=== PATIENT | male | born 1960 | race African-American/Black ===

== ENCOUNTER → 2018-01-03 07:45 | Outpatient (CLI) | payer OTHER, SELFPAY ==
--- NOTE | 2018-01-03 | DI.MRI.S_ITS ---
PROCEDURE: MR KNEE RT WO CON INDICATIONS: RIGHT KNEE PRIMARY OSTEOARTHRITIS TECHNIQUE: Noncontrast sagittal PD fast spin echo and T2 fast spin echo with fat saturation, sagittal 3-D FLASH with fat saturation; coronal T1 spin echo and PD fast spin echo with fat saturation, and axial PD fast spin echo with fat saturation through the knee. COMPARISON: [facility] [place], CR, XR KNEE ARTHRITIC SERIES BI, 12/20/2017, 13:09. [facility] [place], CR, XR BONE LENGTH(SCANOGRAM), 03/10/2017, 10:11. [facility] [place], CR, XR BONE LENGTH SCANOGRAM, 01/03/2018, 8:45. [facility], MR, KNEE WITHOUT CONTRAST, 03/10/2017, 9:27. [facility], MR, KNEE WITHOUT CONTRAST, 02/17/2016, 12:59. FINDINGS: Image quality: Excellent. Menisci: The medial and lateral menisci demonstrate severely degenerated morphology and internal signal, with virtual absence of the lateral meniscus and extensive degenerative change at the medial meniscus comprised of thinning and a horizontally oriented posterior horn medial meniscal tear, nondisplaced. The meniscal root ligaments appear intact. Cruciate ligaments: The anterior and posterior cruciate ligaments appear intact. Medial structures: The medial collateral ligament appears intact. The posterior oblique ligament, semimembranosus tendon insertions, oblique popliteal ligament, and meniscocapsular junction appear intact. Visualized portions of the pes anserinus tendons appear normal. No abnormal bursal fluid. Lateral structures: The lateral collateral ligament, long and short heads of the biceps femoris tendon appear intact. The popliteus tendon appears normal; the popliteofibular ligament appears intact. The posterosuperior and anteroinferior popliteomeniscal fascicles appear intact. The arcuate and fabellofibular ligaments appear intact, on either side of the lateral inferior geniculate artery. Iliotibial band appears normal. Anterior structures: The quadriceps and patellar tendons appear intact. Patellar alignment is normal. No femoral trochlear dysplasia or ventral trochlear prominence. No edema in the infrapatellar fat pad. Bones and cartilage: No bone marrow contusions or fractures. The cartilage of the medial and lateral femorotibial compartments, as well as the patellofemoral compartment, appears prominently reduced or absent in thickness. Joint space: There is a moderate excess of knee joint fluid and there are intra-articular loose bodies in the anterior joint space below the inferior margin of the patellar border, dorsal to the patellar ligament, measuring up to a combined transverse dimension of 2.6 cm and a maximal AP dimension of 8 mm with craniocaudad dimension of 2.0 cm. There is a moderately large Goodwin's cyst containing a large extra-articular partially calcified osteochondral loose body, measuring up to 2.5 cm in maximal dimension. Normal appearing synovial plicae are incidentally noted. IMPRESSION: Severe degenerative changes involving all compartments of the knee with a moderate joint effusion and intra-articular loose bodies. There is a posterior Goodwin's cyst at the medial knee, containing an osteochondral loose body measuring up to 2.5 cm in dimension. The menisci show extensive degeneration, with virtual absence of the lateral meniscus and a horizontally oriented but nondisplaced posterior horn medial meniscal tear. Articular cartilage thinning is pronounced in this patient and most prominent at the lateral compartment. Dictated by: Naseem Campbell M.D. on 01/03/2018 at 10:33 Approved by: Naseem Campbell M.D. on 01/03/2018 at 10:39
== END ==
PROVIDERS: Visit Provider Orthopaedic Surgery
DX: M17.11 Unilateral primary osteoarthritis, right knee (principal); M71.21 Synovial cyst of popliteal space [Baker], right knee; M23.41 Loose body in knee, right knee; S83.241A Other tear of medial meniscus, current injury, right knee, initial encounter
CPT/HCPCS: 73721

== ENCOUNTER → 2018-02-06 13:13 | Outpatient (CLI) | payer OTHER, SELFPAY ==
[2018-02-06 13:23] LABS: Bacteria Urine None Seen; RBC Urine None Seen (0-5/HPF); WBC Urine None Seen (0-5/HPF)
[2018-02-06 13:36] LABS: Add Manual Diff / Slide Review NO; Basophils Percent Auto 0.8 % (0-2); Eosinophils Percent Auto 2.7 % (2-4); Hematocrit 41.8 % (41-53); Hemoglobin 14.1 g/dL (13.5-17.5); Lymphocytes Percent Auto 29.1 % (25-40); Mean Corpuscular HGB Conc 33.8 % (30-36); Mean Corpuscular Hemoglobin 29.9 PG (26-34); Mean Corpuscular Volume 88.4 fL (80-100); Neutrophils Absolute Auto 3200 /uL (3000-5900); Neutrophils Percent Auto 61.4 % (50-75); Platelet Count 221 X10^3/uL (150-400); Red Blood Cell Count 4.72 X10^6/uL (4.5-5.9); Red Cell Distribution Width 14.7 % (11.6-14.8); White Blood Cell Count 5.2 X10^3/uL (4.5-11.0)
[2018-02-06 13:58] LABS: Blood Urea Nitrogen 12 mg/dL (9-20); Calcium 9.4 mg/dL (8.4-10.2); Carbon Dioxide 28 mmol/L (22-32); Chloride 103 mmol/L (98-107); Estimated Glomerular Filt Rate > 60.0 mL/min (>60); Glucose 92 mg/dL (70-100); HEMOLYSIS 22 (0-50); Potassium 4.3 mmol/L (3.4-5.1); Sodium 141 mmol/L (137-145)
[2018-02-06 14:48] LABS: Appearance Urine UA CLEAR; Bilirubin Urine UA NEGATIVE (NEGATIVE); Color Urine UA YELLOW; Glucose Urine UA NEGATIVE (Normal); Ketones Urine UA NEGATIVE (NEGATIVE); Leukocyte Esterase Urine UA NEGATIVE (NEGATIVE); Nitrite Urine UA Negative (Negative); Occult Blood Urine UA NEGATIVE (Negative); Protein Urine UA NEGATIVE (Negative); Urobilinogen Urine UA 0.2 E.U./dL (0.2); pH Urine UA 5.5 (4.5-8.0)
[2018-02-06 15:01] LABS: Culture Indicated Urine Cult Not Indicated
[2018-02-06 15:57] LABS: Hemoglobin A1C% w Est Avg Glu 5.7 % (4.0-6.0)
== END ==
PROVIDERS: PCP Family Medicine; Visit Provider Orthopaedic Surgery
DX: Z01.812 Encounter for preprocedural laboratory examination (principal); N39.0 Urinary tract infection, site not specified; R73.09 Other abnormal glucose
CPT/HCPCS: 36415; 80048; 81001; 83036; 85025; 93005; 93010

== ENCOUNTER 2018-03-01 06:45 | Inpatient (IN) | payer OTHER, SELFPAY ==
[2018-01-30 08:51] VITALS: BMI 33.0
[2018-03-01] VITALS (14 sets, daily range): BP systolic 100–157; BP diastolic 60–90; PULSE 59–82; RESP 11–18; TEMP 36–36.9; O2SAT 94–98; BMI 32.8
--- NOTE | 2018-03-01 | DI.RAD.S_ITS ---
PROCEDURE: XR KNEE RT 1TO2V INDICATIONS: POST OP RIGHT TOTAL KNEE TECHNIQUE: 2 view(s) of the knee acquired. COMPARISON: [facility], MR, MR KNEE RT WO CON, 01/03/2018, 7:53. [facility] [place], CR, XR KNEE ARTHRITIC SERIES BI, 12/20/2017, 13:09. FINDINGS: Bones: Patient is status post knee joint arthroplasty. Hardware components are in expected positions. Visualized bony structures are intact. Soft tissues: Overlying postoperative changes are noted. Calcifications overlying the posterior fossa correlate with loose bodies within Goodwin's cyst on prior MRI. IMPRESSION: Acute postoperative changes of total right knee arthroplasty Dictated by: Jovanny Flower M.D. on 03/01/2018 at 11:25 Approved by: Jovanny Flower M.D. on 03/01/2018 at 11:27
[2018-03-01] MEDS: LACTATED RINGERS 1,000 ML 42 ML IV ×2 (07:09→09:33)
[2018-03-01] MEDS: VANCOMYCIN 1,000 MG/200 ML FROZ.PIGGY 200 MG IV (07:09)
[2018-03-01] MEDS: APREPITANT 40 MG CAPSULE PO (07:31)
--- NOTE | 2018-03-01 07:32 | SUR.PREOP ---
Give emend 40mg per Dr. Veronica MD was going to the Center.
--- NOTE | 2018-03-01 07:35 | PM.PREOP ---
Pre-operative Note Interval Note Pre-op Check: History & Physical Reviewed by Physician and Exam Performed
[2018-03-01] MEDS: CEFAZOLIN 2 GM/100 ML FROZ.PIGGY IV (08:00)
--- NOTE | 2018-03-01 08:03 | PM.OP.1 ---
Operative Date/Time/Diagnoses Date of procedure: 03/01/18 Time of procedure: 08:31 Pre-op diagnosis: Right knee osteoarthritis Post-op diagnosis: same Procedure & Clinicians Procedure: Right total knee arthroplasty Same procedure as scheduled: Yes Indications: The patient has had progressively worsening right knee pain with radiographic changes consistent with arthritis. Non-operative management has failed and the patient has requested total knee replacement. The risks, benefits and alternatives to surgery were discussed with the patient prior to proceeding. Risks discussed included, but were not limited to, failure to relieve pain, stiffness, infection, nerve damage, deep venous thrombosis, pulmonary embolism, stroke, coma, heart attack, permanent paralysis and , as well as the potential need for eventual revision of the prosthetic. Surgeon: Latha Perry Hand Etcher: Surendra Jimenez Anesthesia Type: General and Spinal Operative Notes Findings: Severe right knee osteoarthritis Closure Type: primary Specimen(s): none sent Implants & Drains: Perry [employer]hew Adonay BCS 2 size 6 femur, size 6 tibia, 38 patella oval, poly 10 Applied: drain(s) Estimated Blood Loss (mL): 300 Blood products transfused: none Tourniquet time (min): 80 Procedure in detail: The patient was seen in the pre-operative area, where the patient identified the right knee as the operative site and this was marked with my initials. The patient received pre-operative antibiotics, and was taken to the operating room and placed on the operative table in the supine position. After satisfactory anesthesia, a multimedia programmer out? was performed. The right leg was encircled with a tourniquet about the proximal thigh, and the leg was prepared from the toes to the tourniquet with ChloroPrep in the usual fashion and draped through sterile drapes. The leg was elevated and exsanguinated with Eschmark bandage and the tourniquet inflated to [250] mmHg pressure. The knee was approached through an approximately 18 cm incision centered over the patella and carried into the knee through a medial parapatellar arthrotomy. A portion of the medial and lateral meniscus was resected. Soft tissue was carefully mobilized around the patella the patella was measured with a caliper. Bone was resected from the patella and the patellar height was reconstituted with up an appropriate sized patellar component. A cover was then placed on the patella. A small amount of additional medial and lateral meniscus was resected. The visionare guide fit well to the distal femur. It looked like an appropriate distal femoral cut and the cut was made without difficulty. The rotation was assessed and the appropriate size femoral guide was placed on the distal femur and finishing cuts were made. There was no evidence of notching. The anterior, posterior and chamfer cuts were then made. The posterior osteophytes and soft tissues were then removed. The posterior capsule was injected with part of a mixture of 60 ml 0.25% Marcaine mixed with 20 ml Exparel for post operative pain control. The remainder of this mixture was injected into the capsule and subcutaneous tissues during cement curing. The tibia was prepared and the visionaire guide fit well to the distal tibia. The rotation was assessed. The patient was placed in extension residual medial and lateral meniscus as well as any residual bone was carefully resected. [No] additional tibia was resected. Hemostasis was achieved especially posteriorly. Additional local was injected into the posterior capsule. The extension gap was assessed and additional releases for gap balancing were performed as necessary. It was checked with the gap research professor. The femoral component was trial was placed and the notch was finished. Trial tibial and femoral components were then placed and the knee placed through a range of motion. Range of motion was [0-130], with good stability throughout the range. The trials were then removed, and the tibia was finished. The bone was prepared with pulsatile lavage, and dried with a sponge. Cement was applied and the final prosthetics placed. Excess cement was removed during and after cement curing. A brief Betadine soak was performed. After confirming there was no extruded cement posteriorly, the final tibial insert was placed. The knee was copiously irrigated and the tourniquet deflated. Hemostasis was obtained with the [Aquamantys system]. A drain was placed and brought out superolaterally. The capsule was closed with interrupted # 1 black braided suture. The subcutaneous layer was closed with barbed sutures, and the skin with a running 3-0 V-Lock suture and Surgical glue. An Aquacel Ag dressing was applied and the patient was taken to recovery having tolerated the procedure well. Complications: none Condition: stable Disposition: Acute Care Plan for aftercare: The patient will be maintained on a standard total knee replacement protocol with weight bearing as tolerated. The patient will receive aspirin and sequential compression devices for DVT prophylaxis. The patient will be discharged home when safe for the home environment.
--- NOTE | 2018-03-01 08:11 | P.OP_ITS ---
Operative Date/Time/Diagnoses Date of procedure: 03/01/18 Time of procedure: 08:31 Pre-op diagnosis: Right knee osteoarthritis Post-op diagnosis: same Procedure & Clinicians Procedure: Right total knee arthroplasty Same procedure as scheduled: Yes Indications: The patient has had progressively worsening right knee pain with radiographic changes consistent with arthritis. Non-operative management has failed and the patient has requested total knee replacement. The risks, benefits and alternatives to surgery were discussed with the patient prior to proceeding. Risks discussed included, but were not limited to, failure to relieve pain, stiffness, infection, nerve damage, deep venous thrombosis, pulmonary embolism, stroke, coma, heart attack, permanent paralysis and , as well as the potential need for eventual revision of the prosthetic. Surgeon: Latha Perry Housekeeping Room Inspector: Surendra Jimenez Anesthesia Type: General and Spinal Operative Notes Findings: Severe right knee osteoarthritis Closure Type: primary Specimen(s): none sent Implants & Drains: [employer] Adonay BCS 2 size 6 femur, size 6 tibia, 38 patella oval, poly 10 Applied: drain(s) Estimated Blood Loss (mL): 300 Blood products transfused: none Tourniquet time (min): 80 Procedure in detail: The patient was seen in the pre-operative area, where the patient identified the right knee as the operative site and this was marked with my initials. The patient received pre-operative antibiotics, and was taken to the operating room and placed on the operative table in the supine position. After satisfactory anesthesia, a chemical engineer out? was performed. The right leg was encircled with a tourniquet about the proximal thigh, and the leg was prepared from the toes to the tourniquet with ChloroPrep in the usual fashion and draped through sterile drapes. The leg was elevated and exsanguinated with Eschmark bandage and the tourniquet inflated to [250] mmHg pressure. The knee was approached through an approximately 18 cm incision centered over the patella and carried into the knee through a medial parapatellar arthrotomy. A portion of the medial and lateral meniscus was resected. Soft tissue was carefully mobilized around the patella the patella was measured with a caliper. Bone was resected from the patella and the patellar height was reconstituted with up an appropriate sized patellar component. A cover was then placed on the patella. A small amount of additional medial and lateral meniscus was resected. The visionare guide fit well to the distal femur. It looked like an appropriate distal femoral cut and the cut was made without difficulty. The rotation was assessed and the appropriate size femoral guide was placed on the distal femur and finishing cuts were made. There was no evidence of notching. The anterior, posterior and chamfer cuts were then made. The posterior osteophytes and soft tissues were then removed. The posterior capsule was injected with part of a mixture of 60 ml 0.25% Marcaine mixed with 20 ml Exparel for post operative pain control. The remainder of this mixture was injected into the capsule and subcutaneous tissues during cement curing. The tibia was prepared and the visionaire guide fit well to the distal tibia. The rotation was assessed. The patient was placed in extension residual medial and lateral meniscus as well as any residual bone was carefully resected. [No] additional tibia was resected. Hemostasis was achieved especially posteriorly. Additional local was injected into the posterior capsule. The extension gap was assessed and additional releases for gap balancing were performed as necessary. It was checked with the gap inspectors and regulatory officers. The femoral component was trial was placed and the notch was finished. Trial tibial and femoral components were then placed and the knee placed through a range of motion. Range of motion was [ 0-130], with good stability throughout the range. The trials were then removed, and the tibia was finished. The bone was prepared with pulsatile lavage, and dried with a sponge. Cement was applied and the final prosthetics placed. Excess cement was removed during and after cement curing. A brief Betadine soak was performed. After confirming there was no extruded cement posteriorly, the final tibial insert was placed. The knee was copiously irrigated and the tourniquet deflated. Hemostasis was obtained with the [Aquamantys system]. A drain was placed and brought out superolaterally. The capsule was closed with interrupted # 1 black braided suture. The subcutaneous layer was closed with barbed sutures, and the skin with a running 3 -0 V-Lock suture and Surgical glue. An Aquacel Ag dressing was applied and the patient was taken to recovery having tolerated the procedure well. Complications: none Condition: stable Disposition: Acute Care Plan for aftercare: The patient will be maintained on a standard total knee replacement protocol with weight bearing as tolerated. The patient will receive aspirin and sequential compression devices for DVT prophylaxis. The patient will be discharged home when safe for the home environment.
--- NOTE | 2018-03-01 08:58 | SUR.OPER ---
Supine on padded OR bed. Pillow under head, arms secured on padded armboards <90 degree abduction. Safety belt across torso. Non-operative leg secured with tape over blanket over lower leg. Operative leg secured in DeMayo/Luciano positioner. Foam padded brace at thigh of operative leg.
[2018-03-01] MEDS: BUPIVACAINE LIPOSOME 266 MG/20 ML VIAL INJ (09:14)
[2018-03-01] MEDS: BUPIVACAINE 0.25% W/ EPI 50 ML VIAL INJ (09:15)
[2018-03-01] MEDS: POVIDONE-IODINE 15 ML, SODIUM CHLORIDE 0.9% 250 ML TOP (09:17)
--- NOTE | 2018-03-01 09:20 | SUR.OPER ---
DENTURES ( UPPER) IN LABELED CONTAINER TO PACU WITH PATIENT
--- NOTE | 2018-03-01 11:31 | SUR.PHASEI ---
REPORT CALLED TO JENN PRABHAKAR ON ACUTE CARE FLOOR. PT IN STABLE CONDITION, VSS. IV SITE CLEAR. DRSG TO SURGICAL SITE C/D/I. HEMAVAC INTACT AND REMAINS CLAMPPED. PT SURGICAL EXTREMITY WARM TO TOUCH, +PULSE, DULL SENSTATION AND MOVEMENT MINNUMAL RELATED TO SPINAL. PT ABLE TO MOVE TOES WHEN ASKED TO. PT TOLERATING ORAL INTAKE WITHOUT ANY DIFFICULTLY. PT DENIES ANY NAUSEA OR PAIN/DISCOMFORT. PT RESTING WITH EYES CLOSED, EASILY AROUSABLE TO VOICE. PT APPEARS COMFORTABLE AT THIS TIME. CAP REFILL WNL ON SURGICAL EXTREMITY.
--- NOTE | 2018-03-01 11:44 | SUR.PHASEI ---
PT TRANSFERED TO ACUTE CARE FLOOR IN STABLE CONDITION, VSS. BEDSIDE REPORT GIVEN TO JENN PRABHAKAR AND TRANSFERED CARE OF PT TO HER AT THAT TIME.
[2018-03-01] MEDS: ONDANSETRON 4 MG/2 ML INJ IV ×2 (12:39→16:18)
[2018-03-01] MEDS: LACTATED RINGERS 1,000 ML 125 ML IV ×2 (12:40→21:06)
--- NOTE | 2018-03-01 15:00 | PT.IIE ---
Current Diagnoses Unilateral primary osteoarthritis, right knee (03/01/18) Surgery Performed Operation Date: 03/01/18 07:45 Actual Procedures p Total Knee Arthroplasty(Right) - Latha Perry MD Surgical History (Last Updated 01/30/18 @ 09:00 by Lanny Monteiro, RN) History of arthroplasty of left knee (Acute) History of vasectomy (Acute) Hx of arthroscopy of right knee (Acute) Hx of ventral hernia repair (Acute) Medical History (Last Updated 01/30/18 @ 09:00 by Lanny Monteiro RN) Cardiac enlargement (Acute) Cervical radiculopathy (Acute) Dermatitis (Acute) GERD (gastroesophageal reflux disease) (Acute) HTN (hypertension) (Acute) Hyperlipidemia (Acute) Male circumcision (Acute) Osteoarthritis (Acute) Rupture of left patellar tendon (Acute) Sleep apnea with use of continuous positive airway pressure (CPAP) (Acute) Syncopal episodes (Acute) Physical Therapy Inpatient Evaluation/Re-Eval M1 PT/OT-IP Prior Functional Status Start: 03/01/18 16:25 Freq: NEEDED Status: Active Protocol: Document 03/01/18 15:00 MDD (Rec: 03/01/18 16:39 MDD [email or web address]) Medical Review Prior Functional Status Medical History Reviewed Yes Mobility and Gait independent with mobility with no AD Activities of Daily Living and IADL's independent with ADL's Social History Household Members spouse Living Arrangements House Number of Floors (Floors) One Floor Number of Stairs To Enter/Railing? 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 Will take a few weeks off after surgery. M2 PT-IP Current Condition Start: 03/01/18 16:25 Freq: NEEDED Status: Active Protocol: Document 03/01/18 15:00 MDD (Rec: 03/01/18 16:39 MDD [email or web address]) Physical Therapy Current Condition Current Condition Evaluation Date 03/01/18 Treatment Diagnosis s/p R TKA Onset Date 03/01/18 Weight Bearing Status Weight Bearing Status Weight Bear as Tolerated M3 PT-IP Subjective Start: 03/01/18 16:25 Freq: NEEDED Status: Active Protocol: Document 03/01/18 15:00 MDD (Rec: 03/01/18 16:39 MDD [email or web address]) Subjective Physical Therapy Visit Type Type Initial Evaluation Visit Start Time 14:20 Visit Stop Time 15:00 Total Visit Minutes 40 Number of RETAIL FINANCIAL ANALYST Visits 0 Physical Therapy Visit Comments Patient Comments Pt is agreeable to participate with PT Therapy Pain Assessment Pain Present Pain Present Denied Pain M4 PT-IP Mobility and Gait Start: 03/01/18 16:25 Freq: NEEDED Status: Active Protocol: Document 03/01/18 15:00 MDD (Rec: 03/01/18 16:39 MDD [email or web address]) PT-Bed Mobility Assessment Rolling Type of Rolling Roll to Left Level of Assist Independent Supine to Sit Supine to Sit Independent Sit to Supine Sit to Supine Independent Scooting Scooting to Edge of Bed Independent Scooting Up and Down in Bed Independent PT-Transfer Assessment Sit to and From Stand Sit to and from Stand Contact Guard Assistance Equipment Transfer Assistive Device Gait Belt Front Wheeled Walker Orthotic/Prosthetic Devices or Brace: No Transfers Transfer Destination Bed Transfer Ability Level of Assist Contact Guard Assistance Gait Assessment Gait Gait Assistance Required: Contact Guard Assist Distance (Feet) (feet) 30 Able to Maintain Weight Bearing Status Yes During Gait Assistive Devices Assistive Device Gait Belt Front Wheeled Walker Orthotic/Prosthetic Devices or Brace: No Gait Deviations General Gait Pattern Within Normal Limits Antalgic Decreased Stride Length Comments Gait Comments step to gait pattern, increased reliance on UE's PT-Balance Assessment Sitting Balance and Reactions Static Sitting Balance Ability Normal Dynamic Sitting Balance Ability Normal Standing Balance and Reactions Static Standing Balance Ability Normal Dynamic Standing Balance Ability Fair M5 PT-IP Objective Assessments Start: 03/01/18 16:25 Freq: NEEDED Status: Active Protocol: Document 03/01/18 15:00 MDD (Rec: 03/01/18 16:39 [email or web address] Orientation Orientation/Cognition Level of Alertness Alert Orientation Name Age Birthday Month Date Year Day of Week Place Situation Language Function Ability No Deficits Noted Safety Awareness Understands Safety Issues Memory Description No Deficits Noted Gross Range of Motion Lower Extremity ROM Assessment Within Functional Limits Strength Lower Extremity Strength Assessment Within Functional Limits Coordination Assessment Gross Coordination Gross Coordination WNL Sensation Assessment Sensation Gross Sensation WNL Light Touch Intact Other Assessments Other Other Assessments Pt does report slight nausea and dizziness with sitting upright. Dizziness resolved after a few minutes. M6 PT-IP Treatment Start: 03/01/18 16:25 Freq: NEEDED Status: Active Protocol: Document 03/01/18 15:00 MDD (Rec: 03/01/18 16:39 MDD [email or web address]) Physical Therapy Treatment Exercises Exercises Ankle Pumps Gluteal Sets Quad Sets Heel Slides Straight Leg Raises Knee ROM Measurement R knee AROM: -20 to 84 degrees Education Education Provided Precautions Weight Bearing Status Post-Op Packet Safety M7 PT-IP Assessment and Plan Start: 03/01/18 16:25 Freq: NEEDED Status: Active Protocol: Document 03/01/18 15:00 MDD (Rec: 03/01/18 16:39 MDD [email or web address]) PT Summary Assessment and Plan Potential Rehabilitation Potential Excellent Status of Condition at Evaluation Stable Summary Impairments Pain ROM Transfers Gait Activity Tolerance Progress Towards Goals Progressing Toward Goals Assessment Summary Pt demonstrates independent bed mobility and SBA for transfers today. Requiring CGA for gait due to dizziness and nausea. Goals Bed Mobility Goal Independent Transfer Goal Independent Gait Goal Independent Gait Distance 50 feet on level ground Other Goals ascend one step with no railings Days to Meet Goals 1 Frequency of Treatment Frequency Of Treatment Once a Day Treatment Plan Physical Therapy Treatment Plan Transfer Training Gait Training Therapeutic Exercise Post Op Education Discharge Planning Other Recommendations and Next Treatment Improve gait endurance and Focus practice one step Recommendations To Nursing Amount of Assist Needed Standby Assistance Discharge Recommendations PT Discharge Recommendations Home Home with Assistance Equipment Needed for Home Before Pt is planning on purchasing a Discharge shower chair - discussed with and daughter in room.
[2018-03-01] MEDS: ACETAMINOPHEN 325 MG TABLET 975 MG PO ×2 (15:09→21:06)
[2018-03-01] MEDS: CEFAZOLIN VIAL 3 GM in SODIUM CHLORIDE 0.9% 100 ML 200 ML IV (16:16)
[2018-03-01] MEDS: ASPIRIN EC 81 MG TABLET PO (21:06)
[2018-03-01] MEDS: DOCUSATE 100 MG CAPSULE PO (21:06)
--- NOTE | 2018-03-01 23:01 | PC.NURSE ---
Shante shift note: Patient awake and alert, adequate pain control with scheduled Tylenol, no additional pain medication required. RLE elevated with ice, Hemovac with sanguinous drainage (200ml). CMS intact. Uanble to void 8 hr post op, bladder scan with > 900 ml. Straight urinary catherization performed as ordered, obtained 880 ml, clear yellow urine. Tolerated procedure well, states relief. 3 hours post catherization, patient attempting to use urinal, states has sensation to void. Will continue to monitor. Call light within reach.
[2018-03-02] MEDS: CEFAZOLIN VIAL 3 GM in SODIUM CHLORIDE 0.9% 100 ML 200 ML IV (00:43)
--- NOTE | 2018-03-02 02:48 | PC.NURSE ---
Addendum entered by Bev Bartlett R.N. 03/02/18 06:38: 0615-Pt up to BR for BM, remains unable to start urinating. Asked about Flomax again. Will discuss with PA in rounds. As pt has been unable to void, will bladder scan and place persaud once out of BR. Original Note: Addendum entered by Bev Bartlett R.N. 03/02/18 05:37: 0500-Pt requests suppository, given. Will attempt urinal again this am. APAP given early for pain control, on request. Pt up to ambulate in room 1PA. Original Note: Noc Shift Pt reporting bladder distention and inability to void at start of shift. Bladder scanned for >900mls I/O cath done, with 1150mls out. Pt reports immediate relief. Sensation to void is present, just unable to get started. Pt reports recent conversation with regarding starting Flomax. Pt will notifiy staff of urge to void and assist. No further c/o, pain to R knee well managed with scheduled APAP.
[2018-03-02] MEDS: BISACODYL 10 MG SUPP PR (04:52)
[2018-03-02 05:12] LABS: Hematocrit 35.8 % (41-53); Hemoglobin 12.2 g/dL (13.5-17.5)
[2018-03-02 05:15] VITALS: BP 117/64; PULSE 64; RESP 16; TEMP 36.4; O2SAT 98
[2018-03-02] MEDS: ACETAMINOPHEN 325 MG TABLET 975 MG PO ×2 (05:38→14:27)
[2018-03-02 08:00] VITALS: BP 130/71; PULSE 65; RESP 16; TEMP 36.6; O2SAT 96
[2018-03-02] MEDS: ASPIRIN EC 81 MG TABLET PO (09:57)
[2018-03-02] MEDS: DOCUSATE 100 MG CAPSULE PO (09:57)
[2018-03-02] MEDS: TAMSULOSIN 0.4 MG CAPSULE PO (09:58)
[2018-03-02] MEDS: NAPROXEN 250 MG TABLET 500 MG PO (10:41)
--- NOTE | 2018-03-02 10:53 | P.DS_ITS ---
History of Present Illness Date Patient Seen: 03/02/18 Time Patient Seen: 10:49 Chief [place] [id number] Narrative: Status post right total knee arthroplasty Discharge Providers Date of admission: 03/01/18 06:45 Primary care physician: Rosa Edmond MD Consults: 03/01/18 11:54 Consult to Discharge Planning Routine Comment: Consult to Physical Therapy Evaluate & Treat Comment: Physician Instructions: postop TKA protocol Consult to Respiratory Therapy Evaluate & Treat Comment: Physician Instructions: Evaluate and treat 03/01/18 11:57 Consult to Respiratory Therapy Evaluate & Treat Comment: Physician Instructions: Evaluate and treat Discharge provider: Jessica Baltazar PA-C Summary Discharge Diagnosis: Status post right total knee arthroplasty Hospital Course: Jb was admitted for right total knee arthroplasty and he consented to procedure. On postop day 1. He is feeling well and wanted to go home. He has a history of urinary retention/BPH and has had to have a catheter after surgery before. We started him on Flomax postop day 1. He will take this regularly until follow-up with his primary care who will manage this. He has a plan already with his primary care that he has to go to [facility] if he has any issues with urinary retention. Catheter was removed and trial is currently being done prior to discharge. If patient is unable to urinate will go home with a Sen leg bag. Patient's Lisseth will be his primary caregiver. A work letter was provided to her today. On day of discharge patient's calves were soft, compressible, nontender bilaterally. Pain was adequately controlled. ASA for DVT prophylaxis. Status at Discharge Functional status at discharge: uses cane/walker Exam Vital Signs (past 8 hours): - 03/02/18 05:15 03/02/18 08:00 Temperature 97.5 F L 97.9 F Pulse Rate 64 65 Respiratory Rate 16 16 Blood Pressure 117/64 130/71 H Pulse Oximetry 98 96 Oxygen Delivery Method Room Air Oxygen Flow Rate 0 Narrative Exam Narrative: Patient lying in bed in no acute distress. He is alert and oriented x3. Dressing on right knee is CDI. Mike wrap in place. Calves are soft , compressible, nontender bilaterally. Sensation intact to light touch throughout bilateral lower extremities. Pulses are symmetrical. He is able to actively dorsiflex plantar flex. Pain is well controlled. He has been up and ambulating. Sen being removed prior to discharge. Objective Labs Result Diagrams: 03/02/18 04:48 Labs: Laboratory Results - last 24 hr 03/02/18 04:48 Hgb 12.2 L Hct 35.8 L Discharge Plan Discharge Plan Patient Disposition: Home, Self-Care Discharge comment: DC home today with Discharge Med Rec/Prescriptions Prescriptions: New hydrocodone-acetaminophen 5-325 mg Tablet 1 tab PO Q4HR PRN (Reason: Pain, Severe (7-10)) Qty: 50 RF: 0 tamsulosin [Flomax] 0.4 mg Capsule,Extended Release 24hr 0.4 mg PO DAILY Qty: 30 RF: 0 naproxen 250 mg Tablet 250 mg PO DAILY PRN (Reason: Pain, Mild (1-3)) Qty: 30 RF: 0 docusate sodium 100 mg Capsule 100 mg PO BID PRN (Reason: constipation) Qty: 30 RF: 0 Continue loratadine [Claritin] 10 mg Tablet 10 mg PO DAILY PRN (Reason: Seasonal allergies) RF: 0 Changed aspirin 81 MG tablet,chewable 81 mg PO BID Qty: 0 RF: 0 Discontinued naproxen sodium [Aleve] 220 MG capsule 1 - 2 tab PO Q DAY PRN PRN (Reason: pain) Qty: 0 RF: 0 Follow up/Referrals: Rosa Edmond MD [Primary Care Provider] - (Please follow-up in next 1-2 weeks for urinary retention/BPH management) Latha Perry MD [Physician] - (Please follow up in 5-7 days at our office) Provider Discharge Instructions Diet: Diet as Tolerated Cold/Heat Therapy: As needed Wound Care Report to your healthcare provider any signs of infection, such as:: chills, fever and increased pain Dressing: Please leave dressing in place for 10-14 days Visit Report/Discharge Packet Instructions: DI for Knee Replacement Discharge Data Primary Care Provider: Rosa Edmond Attending Provider: Latha Perry Admit Date/Time: 03/01/18 06:45 Quality VTE Deep Vein Thrombosis/Pulmonary Embolism Present on Admission: No
--- NOTE | 2018-03-02 11:35 | PT.IPTN ---
Current Diagnoses Unilateral primary osteoarthritis, right knee (03/01/18) Surgery Performed Operation Date: 03/01/18 07:45 Actual Procedures p Total Knee Arthroplasty(Right) - Latha Perry MD Physical Therapy Treatment Note M2 PT-IP Current Condition Start: 03/01/18 16:25 Freq: NEEDED Status: Active Protocol: Document 03/01/18 15:00 MDD (Rec: 03/01/18 16:39 MDD [email or web address]) Physical Therapy Current Condition Current Condition Evaluation Date 03/01/18 Treatment Diagnosis s/p R TKA Onset Date 03/01/18 Weight Bearing Status Weight Bearing Status Weight Bear as Tolerated M3 PT-IP Subjective Start: 03/01/18 16:25 Freq: NEEDED Status: Active Protocol: Document 03/02/18 11:04 MDD (Rec: 03/02/18 12:04 MDD [email or web address]) Subjective Physical Therapy Visit Type Type Treatment Note Visit Start Time 11:04 Visit Stop Time 11:35 Total Visit Minutes 31 Number of OXYACETYLENE 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 No complaints. Reports has purchased a grab bar for near the toilet. Therapy Pain Assessment Pain When Pain Assessed At Rest Pain Present Pain Present Pain Reported Location Right Knee Intensity 4 Scale Used Numeric (1 - 10) Description Aching M4 PT-IP Mobility and Gait Start: 03/01/18 16:25 Freq: NEEDED Status: Active Protocol: Document 03/02/18 11:04 MDD (Rec: 03/02/18 12:04 MDD [email or web address]) PT-Bed Mobility Assessment Rolling Level of Assist Independent Supine to Sit Supine to Sit Independent Sit to Supine Sit to Supine Independent Scooting Scooting to Edge of Bed Independent Scooting Up and Down in Bed Independent PT-Transfer Assessment Sit to and From Stand Sit to and from Stand Independent Equipment Transfer Assistive Device Gait Belt Front Wheeled Walker Orthotic/Prosthetic Devices or Brace: No Transfers Transfer Destination Bed Chair Transfer Ability Level of Assist Independent Gait Assessment Gait Gait Assistance Required: Independent Distance (Feet) (feet) 278 Able to Maintain Weight Bearing Status Yes During Gait Assistive Devices Assistive Device Gait Belt Front Wheeled Walker Orthotic/Prosthetic Devices or Brace: No Gait Deviations General Gait Pattern Antalgic Comments Gait Comments mild forward trunk lean with heavy reliance on UE's. Cues for improved posture, decreased pressure on UE's. Stair Climbing Assessment Evaluation Level of Assist On Stairs Independent Devices Stair Climbing Assistive Devices Front Wheel Walker Technique/Endurance Stair Climbing Direction Ascend and Descend Stair Climbing Technique Step to Step Number of Steps Climbed 1 Query Text: Stair Climbing Set # Repetitions (reps) 2 Comments Stair Climbing Comments Performed threshold step easily with proper pattern. M5 PT-IP Objective Assessments Start: 03/01/18 16:25 Freq: NEEDED Status: Active Protocol: Document 03/01/18 15:00 MDD (Rec: 03/01/18 16:39 MDD [email or web address]) Orientation Orientation/Cognition Level of Alertness Alert Orientation Name Age Birthday Month Date Year Day of Week Place Situation Language Function Ability No Deficits Noted Safety Awareness Understands Safety Issues Memory Description No Deficits Noted Gross Range of Motion Lower Extremity ROM Assessment Within Functional Limits Strength Lower Extremity Strength Assessment Within Functional Limits Coordination Assessment Gross Coordination Gross Coordination WNL Sensation Assessment Sensation Gross Sensation WNL Light Touch Intact Other Assessments Other Other Assessments Pt does report slight nausea and dizziness with sitting upright. Dizziness resolved after a few minutes. M6 PT-IP Treatment Start: 03/01/18 16:25 Freq: NEEDED Status: Active Protocol: Document 03/02/18 11:04 MDD (Rec: 03/02/18 12:04 MDD [email or web address]) Physical Therapy Treatment Exercises Knee ROM Measurement -2 to 82 M7 PT-IP Assessment and Plan Start: 03/01/18 16:25 Freq: NEEDED Status: Active Protocol: Document 03/02/18 11:04 MDD (Rec: 03/02/18 12:04 MDD [email or web address]) PT Summary Assessment and Plan Potential Rehabilitation Potential Excellent Status of Condition at Evaluation Stable Summary Impairments Pain ROM Progress Towards Goals Safe For Discharge Goals Met Assessment Summary Pt demonstrating independent bed mobility, independent transfers, independent steps. Pt safe for d/c home when medically necessary. May benefit from additional review of ther-ex if still in house. Goals Bed Mobility Goal Independent Transfer Goal Independent Gait Goal Independent Gait Distance 50 feet on level ground Other Goals ascend one step with no railings Days to Meet Goals 1 Frequency of Treatment Frequency Of Treatment Once a Day Treatment Plan Physical Therapy Treatment Plan Transfer Training Gait Training Therapeutic Exercise Post Op Education Discharge Planning Other Recommendations and Next Treatment Improve gait endurance and Focus practice one step Recommendations To Nursing Amount of Assist Needed Standby Assistance Discharge Recommendations PT Discharge Recommendations Home Home with Assistance Equipment Needed for Home Before Pt is planning on purchasing a Discharge shower chair - discussed with and daughter in room.
--- NOTE | 2018-03-02 12:12 | PC.NURSE ---
Addendum entered by Emily Patricia R.N. 03/02/18 14:58: Pt only able to void 100cc. Bladder scanned pt and he had 464cc of urine left in bladder. Phoned Jeanette Paniagua as she requested and we have decided that we will give pt until 1600 to void and if unable or if voids a small amount he will be bladder scanned, if above 400cc then he will go home with persaud catheter and leg bag. He is to call his primary care provider today and see about getting in to see him about urinary retention, and possible urology consult. Pts iv taken out and his hemovac, he had about 50cc in the chamber. He is trying to void again now. Original Note: Addendum entered by Emily Patricia R.N. 03/02/18 12:15: pts persaud catheter taken out per Jeanette VÁSQUEZ. This was done at 11am. Pt has 3 hours to void and if he is unable we will send pt home with a leg bag and have to insert another persaud. WIll call THALIA Mckeon on her cell phone around 1400, to keep her updated. Original Note: Assess- Pt is A&)x3. Persaud patent this morning. Hemovac with bloody drainage in chamber. Aquacel dressing to R.knee is cdi. Pt had persaud put in this am as he could not void and had 900cc of urine in his bladder. He is a 1 person assist to use the bathroom and is working with pt. Pt has already had a bm this am as he had a suppository. He is visiting with his and hoping to go home later today.
[2018-03-02 13:30] VITALS: BP 125/67; PULSE 69; RESP 18; TEMP 36.7; O2SAT 99
--- NOTE | 2018-03-02 14:39 | CM.DANOTE ---
Discharge Planning/Care Management CM Discharge Assessment Start: 03/02/18 14:38 Freq: Status: Active Protocol: Document 03/02/18 14:38 (Rec: 03/02/18 14:39 [id number]) Discharge Planning Assessment History Provided By Patient Medical Record Has Patient been admitted in last 30 No days? Prior Living Arrangements House Household Members spouse Type of transporation used prior to Drives own vehicle admit Independent with ADL's Yes Is patient alert and oriented? Yes Caregiver for Another No Patient Discharge Plan Description OP PT Therapy Community Services Needed at Discharge Physical Therapy Referrals Initiated None needed Discharge Plan Home Transportation Arrangement to transport patient patient home. Additional Comment Patient has OP PT set up with [facility] in [place]. Review Status Complete Next Review Type Discharge Review
== END 2018-03-02 16:10 | disposition home or self-care (01) | DRG 470 ==
PROVIDERS: Admitting Provider Orthopaedic Surgery; PCP Family Medicine; Visit Provider Orthopaedic Surgery
PROC: 0SRC0JZ Replacement of Right Knee Joint with Synthetic Substitute, Open Approach (ICD-10-PCS; CPT 27447; principal; 2018-03-01 07:45)
DX: M17.11 Unilateral primary osteoarthritis, right knee (principal); I10 Essential (primary) hypertension; K21.9 Gastro-esophageal reflux disease without esophagitis; G47.33 Obstructive sleep apnea (adult) (pediatric); E78.5 Hyperlipidemia, unspecified
CPT/HCPCS: 36415; 73560; 85014; 85018; 94762; 97110; 97161; 97530; C1776; C9290; J0690; J1100; J2250; J2274; J2405; J2704; J2765; J3010; J3370; J8501

== ENCOUNTER → 2018-12-25 07:56 | Outpatient (CLI) | payer OTHER, SELFPAY ==
[2018-03-01 11:20] VITALS: BMI 32.8
--- NOTE | 2018-12-25 | DI.ECHO.S_ITS ---
[facility] +---------+ [facility] +---------+ : : [address] : : : : [id number] : : : : Phone: [phone] +---------+ Echocardiogram Report + + :Name: NAPOLEON MARCIAL Study Date: 12/25/2018 Height: 76 in : :[facility] Exam Location: [facility] Weight: 270 lb : : Gender: Male BSA: 2.5 m2 : :: 1960 Age: 58 yrs BP: 130/80 mmHg: :Reason For Study: Stomach pressure/ Soft tissue disorder : : Performed By: Rea Page : :Referring: POONAM JAMISON : + + Interpretation Summary Left ventricular wall thickness is mildly increased. Left ventricular systolic function is normal without focal wall motion abnormalities. The ejection fraction is estimated to be 60-65%. Diastolic parameters suggest probable normal left ventricular diastolic function and normal filling pressures. The right ventricle is normal in size and function. The right ventricular systolic pressure is estimated to be at least 27 mmHg based on an estimated right atrial pressure of 3 mm Hg. The left atrial size is normal. Borderline right atrial enlargement. There is no significant valvular heart disease. The aortic root is mildly dilated. The ascending aorta is mildly enlarged. Procedure: A two-dimensional transthoracic echocardiogram with color flow and Doppler was performed. The study quality was technically adequate. There is no prior echocardiogram noted for this patient. The patient was in sinus bradycardia with heart rates between 54-62 bpm during the exam. Left Ventricle: The left ventricle is normal in size. Left ventricular wall thickness is mildly increased. Left ventricular systolic function is normal without focal wall motion abnormalities. The ejection fraction is estimated to be 60-65%. Diastolic parameters suggest probable normal left ventricular diastolic function and normal filling pressures. Right Ventricle: The right ventricle is normal in size and function. Atria: The left atrial size is normal. Borderline right atrial enlargement. There is no Doppler evidence for an interatrial shunt. Mitral Valve: The mitral valve is normal in structure and function. There is trace mitral regurgitation. Aortic Valve: The aortic valve is trileaflet. The aortic valve opens well. No aortic regurgitation is present. Tricuspid Valve: The tricuspid valve is normal in structure and function. There is trace tricuspid regurgitation. The right ventricular systolic pressure is estimated to be at least 27 mmHg based on an estimated right atrial pressure of 3 mm Hg. Pulmonic Valve: The pulmonic valve is not well seen, but is grossly normal. There is trace pulmonic regurgitation. There is no significant valvular heart disease. Great Vessels: The aortic root is mildly dilated. The ascending aorta is mildly enlarged. The pulmonary artery is not well visualized, but is probably normal size. The IVC is of normal diameter and collapses greater than 50% with a sniff. This suggests a low right atrial pressure of 3 mm Hg. Pericardium/ Pleura There is no pericardial effusion. There is no pleural effusion. MMode/2D Measurements & Calculations LVIDd: 5.3 cm LVOT diam: 2.3 cm LVIDs: 3.3 cm Ao root diam: 3.9 cm FS: 38.0 % asc Aorta Diam: 3.9 cm EPSS: 0.00 cm IVSd: 1.3 cm LVPWd: 1.0 cm LV velazquez. diameter/BSA (cm/m^2): 2.1 LV sys. diameter/BSA (cm/m^2): 1.3 LA A2 area: 26.7 cm2 RA long axis: 5.7 cm LA A4 area: 23.4 cm2 RA area: 23.3 cm2 LA length (vol): 6.5 cm RA vol: 80.8 ml LA vol: 81.6 ml RA : 32.1 ml/m2 LA vol index: 32.4 ml/m2 IVC diam: 1.5 cm RVD2 (mid): 4.1 cm TAPSE: 2.8 cm Doppler Measurements & Calculations Ao V2 max: 128.6 cm/sec LVOT Max Bradley: 85.9 cm/sec Ao V2 mean: 86.3 cm/sec LV V1 max P.0 mmHg Ao max P.6 mmHg LV V1 VTI: 17.1 cm Ao mean P.3 mmHg TREMAYNE(I,D): 2.9 cm2 Ao V2 VTI: 23.9 cm TREMAYNE(V,D): 2.7 cm2 sev ratio: 0.71 TREMAYNE indexed to BSA (cm^2/m^2): 1.2 MV E max bradley: 65.0 cm/sec TR max bradley: 243.1 cm/sec MV A max bradley: 61.6 cm/sec TR max P.6 mmHg MV E/A: 1.1 PA V2 max: 65.1 cm/sec Med Peak E' Bradley: 8.8 cm/sec PA V2 mean: 48.5 cm/sec E/E' med: 7.4 PA mean P.00 mmHg Lat Peak E' Bradley: 9.9 cm/sec PA Accel Time: 0.12 sec E/E' lat: 6.6 E/e' average: 7.0 MV dec time: 0.25 sec MV P1/2t: 72.1 msec MV P1/2t max bradley: 74.5 cm/sec SV(LVOT): 70.1 ml MVA(P1/2t): 3.1 cm2 Reading Physician:05:44 PM
== END ==
PROVIDERS: PCP Family Medicine; Visit Provider Family Medicine
DX: I77.89 Other specified disorders of arteries and arterioles (principal); M79.89 Other specified soft tissue disorders; R10.9 Unspecified abdominal pain
CPT/HCPCS: 93306

== ENCOUNTER → 2020-05-12 15:15 | Outpatient (CLI) | payer MEDICARE, OTHER, SELFPAY ==
[2018-03-01 11:20] VITALS: BMI 32.8
--- NOTE | 2020-05-12 | DI.ECHO.S_ITS ---
[facility] +---------+ [facility] +---------+ : : [address] : : : : [id number] : : : : Phone: [phone] +---------+ Echocardiogram Report + + :Name: NAPOLEON MARCIAL Study Date: 05/12/2020 Height: 76 in : :[facility] Weight: 269 lb : : Gender: Male BSA: 2.5 m2 : :: 1960 Age: 59 yrs BP: 152/91 mmHg: :Reason For Study: Hypertension : : Performed By: Taryn Sosa : :Referring: EVIE CROWLEY M : + + Interpretation Summary 1) Mildly increased left ventricular thickness (concentric) with normal size, normal wall motion, and normal systolic function (EF 60-65%). 2) Normal right ventricular size and function. 3) No significant valvular abnormalities. 4) The ascending aorta is mildly enlarged at 4.1cm. 5) Hypertension present during the study (BP 152/91mmHg). 6) Compared to the Echo done 12/25/2018, no significant change. Procedure: A two-dimensional transthoracic echocardiogram with color flow and Doppler was performed. The study quality was technically adequate. Comparison is made with the echocardiogram of 01/04/2019. The heart rate ranged between 54-67 bpm during the study. Left Ventricle: The left ventricle is normal in size. There is mild concentric left ventricular hypertrophy. The ejection fraction is estimated to be 60-65%. Diastolic parameters suggest probable normal left ventricular diastolic function and normal filling pressures. Right Ventricle: The right ventricle is normal in size and function. Atria: The left atrium grossly appears normal in size. Right atrial size is normal. There is no Doppler evidence for an interatrial shunt. Mitral Valve: The mitral valve is normal in structure and function. There is trace mitral regurgitation. Aortic Valve: The aortic valve is trileaflet. The aortic valve opens well. There is no aortic valve stenosis. No aortic regurgitation is present. Tricuspid Valve: The tricuspid valve is normal in structure and function. The right ventricular systolic pressure is estimated to be at least 23 mmHg based on an estimated right atrial pressure of 3 mm Hg. Pulmonic Valve: The pulmonic valve leaflets are thin and pliable; valve motion is normal. There is no pulmonic valvular regurgitation. Great Vessels: The aortic root is normal size. The ascending aorta is mildly enlarged. The IVC is of normal diameter and collapses greater than 50% with a sniff. This suggests a low right atrial pressure of 3 mm Hg. Pericardium/ Pleura There is no pericardial effusion. There is no pleural effusion. MMode/2D Measurements & Calculations LVIDd: 5.4 cm LVOT diam: 2.2 cm LVIDs: 3.2 cm Ao root diam: 3.9 cm FS: 40.3 % asc Aorta Diam: 4.1 cm EPSS: 1.2 cm Ao Arch Diam (Prox Trans): 3.0 cm IVSd: 1.2 cm LVPWd: 1.3 cm LV velazquez. diameter/BSA (cm/m^2): 2.1 LV sys. diameter/BSA (cm/m^2): 1.3 LA A2 area: 18.3 cm2 RA long axis: 4.4 cm LA A4 area: 17.3 cm2 RA area: 14.2 cm2 LA length (vol): 5.3 cm RA vol: 38.5 ml LA vol: 50.3 ml RA : 15.3 ml/m2 LA vol index: 20.0 ml/m2 IVC diam: 1.3 cm RVD1 (basal): 3.5 cm TAPSE: 2.2 cm Doppler Measurements & Calculations Ao V2 max: 140.3 cm/sec LVOT Max Bradley: 114.0 cm/sec Ao V2 mean: 92.9 cm/sec LV V1 max P.2 mmHg Ao max P.9 mmHg LV V1 VTI: 24.2 cm Ao mean P.9 mmHg TREMAYNE(I,D): 3.3 cm2 Ao V2 VTI: 28.6 cm TREMAYNE(V,D): 3.1 cm2 sev ratio: 0.85 TREMAYNE indexed to BSA (cm^2/m^2): 1.3 MV E max bradley: 61.3 cm/sec TR max bradley: 224.7 cm/sec MV A max bradley: 76.5 cm/sec TR max P.2 mmHg MV E/A: 0.80 PA V2 max: 81.7 cm/sec Med Peak E' Bradley: 6.0 cm/sec PA V2 mean: 54.7 cm/sec E/E' med: 10.2 PA mean P.4 mmHg Lat Peak E' Bradley: 6.8 cm/sec PA pr(Accel): 32.8 mmHg E/E' lat: 9.0 E/e' average: 9.6 MV dec time: 0.19 sec SV(LVOT): 93.4 ml Reading Physician:02:50 PM
== END ==
PROVIDERS: PCP Family Medicine; Referring Provider Family Medicine; Visit Provider Family Medicine
DX: I77.89 Other specified disorders of arteries and arterioles (principal); I10 Essential (primary) hypertension
CPT/HCPCS: 93306

== ENCOUNTER → 2021-06-02 11:56 | Outpatient (CLI) | payer MEDICARE, OTHER, SELFPAY ==
[2018-03-01 11:20] VITALS: BMI 32.8
--- NOTE | 2021-06-02 | DI.CT.S_ITS ---
PROCEDURE: CT CHEST WO CON INDICATIONS: Hypertensive heart disease without heart failure TECHNIQUE: Noncontrast 5 mm thick sections acquired from the pulmonary apices to the posterior costophrenic angles. 1 mm lung window, 5 mm thick coronal and sagittal and 7 mm axial MIP reformats were then acquired. For radiation dose reduction, the following was used: automated exposure control, adjustment of mA and/or kV according to patient size. COMPARISON: None. FINDINGS: Image quality: Excellent. Lungs and pleura: No acute air space opacities. No pleural effusions or pneumothorax. Central and peripheral airways are patent and normal in caliber. Mediastinum: Heart size is normal. No pericardial effusion. No mediastinal adenopathy by size criteria. Thoracic aorta and central pulmonary arteries are normal in size. Esophagus is normal in caliber. No hiatal hernia. Bones and chest wall: No suspicious bony lesions. No vertebral body compression fractures. No axillary or supraclavicular adenopathy by size criteria. Thyroid gland is grossly unremarkable as visualized on noncontrast imaging . Abdomen: Visualized upper abdominal solid organs and bowel loops appear normal in the absence of contrast. IMPRESSION: 1. No acute process. 2. No evidence of pneumonia or edema. Dictated by: Barry Purdy M.D. on 06/02/2021 at 16:55 Approved by: Barry Purdy M.D. on 06/02/2021 at 16:56
== END ==
PROVIDERS: PCP Family Medicine; Referring Provider Internal Medicine Cardiovascular Disease; Visit Provider Internal Medicine Cardiovascular Disease
DX: R07.89 Other chest pain (principal); I11.9 Hypertensive heart disease without heart failure; R94.31 Abnormal electrocardiogram [ECG] [EKG]
CPT/HCPCS: 71250

== ENCOUNTER → 2022-07-27 21:45 | Outpatient (ROUT) | payer MEDICARE, OTHER, SELFPAY ==
[2018-03-01 11:20] VITALS: BMI 32.8
[2022-07-27 23:28] LABS: Appearance Urine UA Clear; Color Urine UA Yellow; Glucose Urine UA NEGATIVE (Negative); Ketones Urine UA NEGATIVE (NEGATIVE); Occult Blood Urine UA 1+ (Negative); Protein Urine UA TRACE (Negative); pH Urine UA 5 (4.5-8.0)
[2022-07-27 23:29] LABS: Bilirubin Urine UA Negative (NEGATIVE); Leukocyte Esterase Urine UA 2+ (NEGATIVE); Nitrite Urine UA NEGATIVE (Negative); Urobilinogen Urine UA Normal E.U./dL (0.2)
[2022-07-28 04:06] LABS: Bacteria Urine Many (>30); RBC Urine 1-5/HPF (0-5/HPF); WBC Urine 5-10/HPF (0-5/HPF)
[2022-07-28 04:07] LABS: Calcium Oxalate Crystals Urine Few; Culture Indicated Urine Specimen Cultured
== END ==
PROVIDERS: PCP Family Medicine
DX: R82.90 Unspecified abnormal findings in urine (principal)
CPT/HCPCS: 81001; 87077; 87086

== ENCOUNTER 2022-11-17 18:53 | Emergency (ER) | payer MEDICARE, OTHER, SELFPAY ==
[2018-03-01 11:20] VITALS: BMI 32.8
[2022-11-17 18:58] VITALS: BP 155/81; PULSE 70; RESP 18; TEMP 37.1; O2SAT 97; BMI 30.4
[2022-11-17 19:59] LABS: Add Manual Diff / Slide Review NO; Basophils Absolute Auto 100 /uL (0-100); Basophils Percent Auto 0.6 % (0-2); Eosinophils Absolute Auto 200 /uL (0-450); Eosinophils Percent Auto 2.5 % (2-4); Hemoglobin 12.6 g/dL (13.5-17.5); Lymphocytes Absolute Auto 1400 /uL (1100-4500); Lymphocytes Percent Auto 14.3 % (25-40); Mean Corpuscular HGB Conc 33.9 % (30-36); Mean Corpuscular Hemoglobin 29.4 PG (26-34); Mean Corpuscular Volume 86.8 fL (80-100); Monocytes Absolute Auto 1000 /uL (0-900); Neutrophils Absolute Auto 7100 /uL (1500-7000); Neutrophils Percent Auto 72.6 % (50-75); Platelet Count 246 X10^3/uL (150-400); Red Blood Cell Count 4.27 X10^6/uL (4.5-5.9); White Blood Cell Count 9.8 X10^3/uL (4.5-11.0)
[2022-11-17 20:20] LABS: BUN Creatinine Ratio 16.7 (6-22); Blood Urea Nitrogen 9 mg/dL (9-20); Carbon Dioxide 33 mmol/L (22-32); Chloride 100 mmol/L (98-107); Estimated Glomerular Filt Rate > 60 mL/min (>60); Glucose 92 mg/dL (80-110); HEMOLYSIS < 15 (0-50); Sodium 138 mmol/L (137-145)
--- NOTE | 2022-11-17 21:52 | ED_ITS ---
HPI - Skin/Abscess/Foreign Bdy General Chief complaint: Skin/Abscess/Foreign Body Stated complaint: smelly wound, sent by MD Time Seen by Provider: 11/17/22 20:48 Source: patient Mode of arrival: Ambulatory Limitations: no limitations History of Present Illness HPI narrative: Patient is a 61-year-old male. His wheelchair bound secondary to being paraplegic. Has developed some pressure sores over the past several weeks. He does have home health nurse but not a wound care nurse. There was some concern about the smell coming from the wounds so he was advised to come to the emergency department for further evaluation. He states he does have some feeling in the area. Does not have much discomfort. Related Data Home Medications Medication Instructions Recorded Confirmed loratadine 10 mg tablet (Claritin) 10 mg PO DAILY PRN Seasonal 01/30/18 03/01/18 allergies Previous Rx's Medication Instructions Recorded aspirin 81 mg chewable tablet 81 mg PO BID #0 tabs 03/02/18 docusate sodium 100 mg capsule 100 mg PO BID PRN constipation #30 03/02/18 caps hydrocodone 5 mg-acetaminophen 325 1 tab PO Q4HR PRN Pain, Severe 03/02/18 mg tablet (7-10) #50 tabs naproxen 250 mg tablet 250 mg PO DAILY PRN Pain, Mild 03/02/18 (1-3) #30 tabs tamsulosin 0.4 mg capsule (Flomax) 0.4 mg PO DAILY #30 caps 03/02/18 doxycycline hyclate 100 mg capsule 100 mg PO BID 10 days #20 caps 11/17/22 Allergies Allergy/AdvReac Type Severity Reaction Status Date / Time oxycodone [From PERCOCET] AdvReac Unknown NAUSEA/VOMI Verified 11/17/22 19:05 TING Review of Systems Gastrointestinal Gastrointestinal: Reports system reviewed and no additional complaints, except as documented Integumentary/Breasts Skin/Breast: Reports system reviewed and no additional complaints, except as documented Neurologic Neurologic: Reports system reviewed and no additional complaints, except as documented Hematologic/Lymphatic On Anticoagulants: No Patient History Medical History Cardiac enlargement Cervical radiculopathy Dermatitis GERD (gastroesophageal reflux disease) HTN (hypertension) Hyperlipidemia Male circumcision Osteoarthritis Rupture of left patellar tendon Sleep apnea with use of continuous positive airway pressure (CPAP) Syncopal episodes Surgical History (Updated 01/30/18 @ 09:00 by Lanny Monteiro RN) History of arthroplasty of left knee History of vasectomy Hx of arthroscopy of right knee Hx of ventral hernia repair Social History household members: spouse Smoking Status: Never smoker alcohol intake: never Smoking Status: Never smoker Substance Use Type: does not use Exam Initial Vital Signs Initial Vital Signs: Vital Signs Temperature 98.7 F 11/17/22 18:58 Pulse Rate 70 11/17/22 18:58 Respiratory Rate 18 11/17/22 18:58 Blood Pressure 155/81 H 11/17/22 18:58 Pulse Oximetry 97 11/17/22 18:58 Oxygen Delivery Method Room Air 11/17/22 18:58 [facility] Head: normal to inspection and normocephalic Skin Other: Patient has 2 wounds on his buttock 1 in the left right that are consistent with pressure wounds. The 1 on the right is smaller approximately 2 cm x 2 cm. No surrounding erythema. It does involve the deeper cutaneous issues and potentially some subcutaneous tissue. The wound on the left is larger. Approximately 3 cm x 3 cm. No surrounding erythema. This does involve the subcutaneous tissue. There is no bone involvement. Neuro General: patient alert and patient awake Course Orders Ordered: ED Orders 11/17/22 21:45 Wound Culture and Gram Stain Stat 11/17/22 22:54 Urine Culture Stat Discontinued Medications Doxycycline Hyclate (Doxycycline Hyclate 100 Mg Tablet) 100 mg PO NOW ONE Stop: 11/17/22 21:54 Last Admin: 11/17/22 22:51 Dose: 100 mg Documented By: BS Vital Signs Vital signs: Vital Signs - 8 hr 11/17/22 23:12 Respiratory Rate 16 Oxygen Delivery Method Room Air MDM - Skin/Abscess/Foreign Bdy Lab Data 11/17/22 19:45 11/17/22 19:45 Labs: Lab Results 11/17/22 11/17/22 Range/Units 19:45 19:45 WBC 9.8 (4.5-11.0) X10^3/uL RBC 4.27 L (4.5-5.9) X10^6/uL Hgb 12.6 L (13.5-17.5) g/dL Hct 37.0 L (41-53) % MCV 86.8 (80-100) fL MCH 29.4 (26-34) PG MCHC 33.9 (30-36) % RDW 15.0 H (11.6-14.8) % Plt Count 246 (150-400) X10^3/uL Neut % (Auto) 72.6 (50-75) % Lymph % (Auto) 14.3 L (25-40) % [place] % (Auto) 10.0 (3-14) % Eos % (Auto) 2.5 (2-4) % Baso % (Auto) 0.6 (0-2) % Neut # (Auto) 7100 H (2307-2436) /uL Lymph # (Auto) 1400 (0990-6813) /uL Bowie # (Auto) 1000 H (0-900) /uL Eos # (Auto) 200 (0-450) /uL Baso # (Auto) 100 (0-100) /uL Sodium 138 (137-145) mmol/L Potassium 4.0 (3.4-5.1) mmol/L Chloride 100 (98-107) mmol/L Carbon Dioxide 33 H (22-32) mmol/L BUN 9 (9-20) mg/dL Creatinine 0.54 L (0.66-1.25) mg/dL Estimated GFR > 60 (>60) mL/min BUN/Creatinine Ratio 16.7 (6-22) Glucose 92 (80-110) mg/dL Calcium 9.0 (8.4-10.2) mg/dL MDM Narrative Medical decision making narrative: Wound cultures were obtained of the wounds. They were covered with bandages. I will start the patient on antibiotics. I did advise that he try his best who alternate his sitting position as much as possible or these wounds heart potentially going to get worse. No indication for admission and surgical debridement right now. Also recommended follow-up with wound care. He expressed understanding and agreement plan. Discharge Plan Departure Patient Disposition: Home Clinical Impression: Decubitus skin ulcer Instructions: How to Prevent Pressure Ulcers, DI for Pressure Injuries Activity Restrictions/Additional Instructions: It is important that you try to shift her weight as much as possible like we discussed. A urine culture and also the wound cultures were pending at the time of your discharge. This will take several days to result. We are going to start you on antibiotics. I do recommend you contact your primary doctor for a follow-up. Return to the emergency department for new symptoms. Prescriptions: New doxycycline hyclate 100 mg capsule 100 mg PO BID 10 Days Qty: 20 0RF No Action loratadine [Claritin] 10 mg Tablet 10 mg PO DAILY PRN (Reason: Seasonal allergies) hydrocodone-acetaminophen 5-325 mg Tablet 1 tab PO Q4HR PRN (Reason: Pain, Severe (7-10)) Qty: 50 0RF Rx Instructions: 1-2 tabs every 4 to 6 hr as needed tamsulosin [Flomax] 0.4 mg Capsule,Extended Release 24hr 0.4 mg PO DAILY Qty: 30 0RF naproxen 250 mg Tablet 250 mg PO DAILY PRN (Reason: Pain, Mild (1-3)) Qty: 30 0RF aspirin 81 MG tablet,chewable 81 mg PO BID Qty: 0 0RF docusate sodium 100 mg Capsule 100 mg PO BID PRN (Reason: constipation) Qty: 30 0RF Referrals: Winsome Duong DO [Primary Care Provider] - Stand Alone Forms: Patient Portal/API
[2022-11-17] MEDS: DOXYCYCLINE HYCLATE 100 MG TABLET PO (22:51)
[2022-11-17 23:12] VITALS: RESP 16
== END 2022-11-17 22:57 | disposition home or self-care (01) ==
PROVIDERS: Emergency Provider Emergency Medicine; PCP Family Medicine; Referring Provider Family Medicine
DX: L89.329 Pressure ulcer of left buttock, unspecified stage (principal)
CPT/HCPCS: 36415; 80048; 85025; 87070; 87075; 87077; 87086; 87186; 87205; 99283; 99284

== ENCOUNTER 2023-04-19 15:04 | Emergency (ER) | payer MEDICARE, OTHER, SELFPAY ==
[2018-03-01 11:20] VITALS: BMI 32.8
[2023-04-19 15:32] VITALS: BP 160/75; PULSE 74; RESP 16; TEMP 36.9; O2SAT 96; BMI 30.3
[2023-04-19 16:17] LABS: Appearance Urine UA SL CLOUDY; Bilirubin Urine UA NEGATIVE (NEGATIVE); Color Urine UA YELLOW; Glucose Urine UA NEGATIVE (Negative); Ketones Urine UA NEGATIVE (NEGATIVE); Leukocyte Esterase Urine UA 3+ (NEGATIVE); Nitrite Urine UA POSITIVE (Negative); Occult Blood Urine UA TRACE-INTACT (Negative); Protein Urine UA NEGATIVE (Negative); Specific Gravity Urine UA <=1.005 (1.000-1.035); pH Urine UA 6.5 (4.5-8.0)
[2023-04-19 16:29] LABS: Bacteria Urine Many (>30); Culture Indicated Urine Specimen Cultured; RBC Urine None Seen (0-5/HPF); Squamous Epithelial Cell Urine 1-5 /HPF (0-5/HPF); WBC Urine 1-5/HPF (0-5/HPF)
[2023-04-19 16:49] LABS: COVID19 -Nasal RAPID Negative (Negative)
--- NOTE | 2023-04-19 17:02 | ED_ITS ---
HPI - General Adult General Chief complaint: Fever Stated complaint: fever fluctuation/V Time Seen by Provider: 04/19/23 16:38 Source: patient Mode of arrival: Wheelchair History of Present Illness HPI narrative: Patient is a 62-year-old male. Is a quadriplegic. Has a suprapubic catheter in place. Also has a pressure ulcer on his buttocks. He is here for evaluation of fluctuation in his blood pressure and also his temperature. He does have autonomic issues given his quadriplegia. He states that these are the symptoms that start to happen when he is concerned about an infection. Related Data Home Medications Medication Instructions Recorded Confirmed loratadine 10 mg tablet (Claritin) 10 mg PO DAILY PRN Seasonal 01/30/18 03/01/18 allergies Previous Rx's Medication Instructions Recorded aspirin 81 mg chewable tablet 81 mg PO BID #0 tabs 03/02/18 docusate sodium 100 mg capsule 100 mg PO BID PRN constipation #30 03/02/18 caps hydrocodone 5 mg-acetaminophen 325 1 tab PO Q4HR PRN Pain, Severe 03/02/18 mg tablet (7-10) #50 tabs naproxen 250 mg tablet 250 mg PO DAILY PRN Pain, Mild 03/02/18 (1-3) #30 tabs tamsulosin 0.4 mg capsule (Flomax) 0.4 mg PO DAILY #30 caps 03/02/18 cefdinir 300 mg capsule 300 mg PO Q12H #14 caps 11/19/22 sulfamethoxazole 800 1 tab PO BID 3 days #6 tabs 04/19/23 mg-trimethoprim 160 mg tablet (Bactrim DS) Allergies Allergy/AdvReac Type Severity Reaction Status Date / Time oxycodone [From PERCOCET] AdvReac Unknown NAUSEA/VOMI Verified 11/17/22 19:05 TING Review of Systems Cardiovascular Comments: No chest pain Respiratory Comments: No shortness of breath Gastrointestinal Comments: No abdominal pain Neurologic Comments: No change in neurologic status Patient History Medical History Cardiac enlargement Cervical radiculopathy Dermatitis GERD (gastroesophageal reflux disease) HTN (hypertension) Hyperlipidemia Male circumcision Osteoarthritis Rupture of left patellar tendon Sleep apnea with use of continuous positive airway pressure (CPAP) Syncopal episodes Surgical History (Updated 01/30/18 @ 09:00 by Lanny Monteiro RN) History of arthroplasty of left knee History of vasectomy Hx of arthroscopy of right knee Hx of ventral hernia repair Social History household members: spouse Smoking Status: Never smoker alcohol intake: never Smoking Status: Never smoker Substance Use Type: does not use Exam Initial Vital Signs Initial Vital Signs: Vital Signs Temperature 98.4 F 04/19/23 15:32 Pulse Rate 74 04/19/23 15:32 Respiratory Rate 16 04/19/23 15:32 Blood Pressure 160/75 H 04/19/23 15:32 Pulse Oximetry 96 04/19/23 15:32 Oxygen Delivery Method Room Air 04/19/23 15:32 Const General: cooperative and comfortable Resp Effort & Inspection: normal respiratory effort Cardio Rate: regular rate Skin Other: He does have a decubitus ulcer on his left sacrum/buttocks. It does appear well. No draining. No surrounding erythema. Course Orders Ordered: ED Orders 04/19/23 15:40 COVID19 -Nasal RAPID Stat Urinalysis and Microscopic Stat Urine Culture Stat Vital Signs Vital signs: Vital Signs - 8 hr 04/19/23 15:32 Temperature 98.4 F Pulse Rate 74 Respiratory Rate 16 Blood Pressure 160/75 H Pulse Oximetry 96 Oxygen Delivery Method Room Air Medical Decision Making Medical Records Medical records reviewed: Yes I reviewed the patient's medical records. Lab Data Lab results reviewed: Yes I reviewed the patient's lab results. Labs: Lab Results 04/19/23 04/19/23 Range/Units 15:40 15:40 Urine Color Yellow Urine Appearance Sl cloudy Urine pH 6.5 (4.5-8.0) Ur Specific [place] <=1.005 (1.000-1.035) Urine Protein Negative (Negative) Urine Glucose (UA) Negative (Negative) g/dL Urine Ketones Negative (NEGATIVE) Urine Occult Blood Trace-intact (Negative) Urine Nitrate Positive H (Negative) Urine Bilirubin Negative (NEGATIVE) Urine Urobilinogen 1.0 (0.2) E.U./dL Ur Leukocyte Esterase 3+ H (NEGATIVE) Urine RBC None seen (0-5/HPF) Urine WBC 1-5/hpf (0-5/HPF) Ur Squamous Epith Cells 1-5 /hpf (0-5/HPF) Urine Bacteria Many (>30) H (None) Ur Culture Indicated? Specimen cultured SARS-CoV-2 (PCR) Negative (Negative) MDM Narrative Medical decision making narrative: Patient does have presenting symptoms today that he states are very similar to his prior episodes when he has been fighting an infection. He does have a decubitus ulcer but it does appear well. A culture was obtained. His urinalysis today is nitrite positive. He does have a suprapubic catheter in place so this could be a colonization however review his medical record shows that he is never been nitrite positive in the past. Because of this we will treat with antibiotics. A urine culture was pending. Prior urine culture show species that have been sensitive to Bactrim. A prescription was sent to the pharmacy of his choice. Will discharge patient home with return precautions. Discharge Plan Departure Patient Disposition: Home Clinical Impression: Urinary tract infection, Pressure ulcer Instructions: DI for Urinary Tract Infection (UTI) Activity Restrictions/Additional Instructions: I do recommend that you continue to take all of your medications as directed. Antibiotics was sent to [facility]. A urine culture was pending at the time of you discharge and we will contact you if we need to change any of the antibiotics based on the results of this. We also did a wound culture today we will contact you if we need to start any antibiotics based on this. Contact your primary doctor for follow-up. Return to the emergency department for new symptoms. Prescriptions: New sulfamethoxazole-trimethoprim [Bactrim DS] 800-160 mg tablet 1 tab PO BID 3 Days Qty: 6 0RF No Action loratadine [Claritin] 10 mg Tablet 10 mg PO DAILY PRN (Reason: Seasonal allergies) hydrocodone-acetaminophen 5-325 mg Tablet 1 tab PO Q4HR PRN (Reason: Pain, Severe (7-10)) Qty: 50 0RF Rx Instructions: 1-2 tabs every 4 to 6 hr as needed tamsulosin [Flomax] 0.4 mg Capsule,Extended Release 24hr 0.4 mg PO DAILY Qty: 30 0RF naproxen 250 mg Tablet 250 mg PO DAILY PRN (Reason: Pain, Mild (1-3)) Qty: 30 0RF aspirin 81 MG tablet,chewable 81 mg PO BID Qty: 0 0RF docusate sodium 100 mg Capsule 100 mg PO BID PRN (Reason: constipation) Qty: 30 0RF cefdinir 300 mg capsule 300 mg PO Q12H Qty: 14 0RF Referrals: Winsome Duong DO [Primary Care Provider] - Stand Alone Forms: Patient Portal/API
--- NOTE | 2023-04-19 18:21 | PC.NURSE ---
assessment done by provider. see provider note.
== END 2023-04-19 18:21 | disposition home or self-care (01) ==
PROVIDERS: Emergency Provider Emergency Medicine; PCP Family Medicine
DX: N39.0 Urinary tract infection, site not specified (principal); L89.329 Pressure ulcer of left buttock, unspecified stage; L89.159 Pressure ulcer of sacral region, unspecified stage
CPT/HCPCS: 81001; 87077; 87086; 87186; 87635; 99281; 99283; C9803

== ENCOUNTER 2023-05-19 01:30 | Emergency (ER) | payer MEDICARE, OTHER, SELFPAY ==
[2018-03-01 11:20] VITALS: BMI 32.8
[2023-05-19 01:35] VITALS: BP 126/77; PULSE 76; RESP 18; TEMP 37; O2SAT 96
--- NOTE | 2023-05-19 01:44 | ED_ITS ---
HPI - General Adult General Chief complaint: Urogenital-Male Stated complaint: Vomiting, fever possible UTI RT earache Time Seen by Provider: 05/19/23 01:33 History of Present Illness HPI narrative: 62-year-old male nonsmoker quadriplegic presents with his in the chief complaint of a few days of low-grade fever and foul-smelling urine with urgency and frequency and the concern for urinary tract infection. Additionally he has some nasal congestion, occasional dry cough and right ear pain. He denies any significant sore throat or shortness of breath. He has no chest pain or abdominal pain but did have some nausea and dry heaves yesterday. He denies any exposure to other obviously ill persons. Related Data Home Medications Medication Instructions Recorded Confirmed loratadine 10 mg tablet (Claritin) 10 mg PO DAILY PRN Seasonal 01/30/18 03/01/18 allergies Previous Rx's Medication Instructions Recorded aspirin 81 mg chewable tablet 81 mg PO BID #0 tabs 03/02/18 docusate sodium 100 mg capsule 100 mg PO BID PRN constipation #30 03/02/18 caps hydrocodone 5 mg-acetaminophen 325 1 tab PO Q4HR PRN Pain, Severe 03/02/18 mg tablet (7-10) #50 tabs naproxen 250 mg tablet 250 mg PO DAILY PRN Pain, Mild 03/02/18 (1-3) #30 tabs tamsulosin 0.4 mg capsule (Flomax) 0.4 mg PO DAILY #30 caps 03/02/18 cefdinir 300 mg capsule 300 mg PO Q12H #14 caps 11/19/22 cefdinir 300 mg capsule 300 mg PO BID #20 caps 05/19/23 Allergies Allergy/AdvReac Type Severity Reaction Status Date / Time oxycodone [From PERCOCET] AdvReac Unknown NAUSEA/VOMI Verified 11/17/22 19:05 TING Review of Systems Review of Systems Narrative: GENERAL: See HPI HEENT: See HPI RESPIRATORY: Denies dyspnea, cough, wheezing, hemoptysis, sputum. CARDIOVASCULAR: Denies chest pain, palpitations, orthopnea, edema, GASTROINTESTINAL: See HPI : See HPI MUSCULOSKELETAL: denies weakness, joint pain, or bony pain SKIN: Denies rash, skin lesions, or other NEUROLOGIC: Denies weakness, headache, numbness, change in speech, confusion, seizures, incoordination. PSYCHIATRIC: No concerning psychosocial issues. 12 point review of systems is negative except for those stated above Patient History Medical History Cardiac enlargement Cervical radiculopathy Dermatitis GERD (gastroesophageal reflux disease) HTN (hypertension) Hyperlipidemia Male circumcision Osteoarthritis Rupture of left patellar tendon Sleep apnea with use of continuous positive airway pressure (CPAP) Syncopal episodes Surgical History History of arthroplasty of left knee History of vasectomy Hx of arthroscopy of right knee Hx of ventral hernia repair Social History household members: spouse Smoking Status: Never smoker alcohol intake: never Smoking Status: Never smoker Substance Use Type: does not use Exam Narrative Exam Narrative: GEN: AOx3 and in mild distress EYES: Pupils are equal, round, and reactive to light and accommodation. Extraoccular muscles are intact bilaterally. There is no subconjunctival hemorrhage or exudate. ENT: Minimal clear postnasal drip, no pharyngeal erythema or tonsillar swelling, exudate, airway patent. Right TM is largely obscured by cerumen, no drainage or obvious erythema. CHEST: Lungs are clear to auscultation bilaterally and free of wheezes, rales, or rhonchi. Heart rate is regular rhythm, there are no murmurs, clicks, rubs, or gallops. There is no chest wall tenderness. ABD: Abdomen is soft and nontender. There is no guarding or rebound. Bowel sounds are normal in all 4 quadrants. There is no mass or organomegaly. SKIN: Warm, pink, and dry. No erythema or rash Initial Vital Signs Initial Vital Signs: Vital Signs Temperature 98.6 F 05/19/23 01:35 Pulse Rate 76 05/19/23 01:35 Respiratory Rate 18 05/19/23 01:35 Blood Pressure 126/77 05/19/23 01:35 Pulse Oximetry 96 05/19/23 01:35 Oxygen Delivery Method Room Air 05/19/23 01:35 Course Orders Ordered: ED Orders 05/19/23 01:46 Covid-19 + FLU A/B + RSV - PCR Stat Urinalysis and Microscopic Stat Urine Culture Stat Discontinued Medications Cefazolin Sodium (Cephalexin 250 Mg Cap Prepack) 1 bottle MISC SEEINSTR ONE Stop: 05/19/23 02:25 Vital Signs Vital signs: Vital Signs - 8 hr 05/19/23 01:35 Temperature 98.6 F Pulse Rate 76 Respiratory Rate 18 Blood Pressure 126/77 Pulse Oximetry 96 Oxygen Delivery Method Room Air Medical Decision Making Lab Data Labs: Lab Results 05/19/23 Range/Units 01:46 Urine Color Yellow Urine Appearance Sl cloudy Urine pH 6.5 (4.5-8.0) Ur Specific [place] 1.010 (1.000-1.035) Urine Protein Negative (Negative) Urine Glucose (UA) Negative (Negative) g/dL Urine Ketones Negative (NEGATIVE) Urine Occult Blood 2+ H (Negative) Urine Nitrate Positive H (Negative) Urine Bilirubin Negative (NEGATIVE) Urine Urobilinogen 1.0 (0.2) E.U./dL Ur Leukocyte Esterase 2+ H (NEGATIVE) Urine RBC 0-1/hpf (0-5/HPF) Urine WBC 30-100/hpf H (0-5/HPF) Ur Squamous Epith Cells 0-1 /hpf (0-5/HPF) Urine Bacteria Many (>30) H (None) Ur Culture Indicated? Specimen cultured MDM Narrative Medical decision making narrative: [62] year old patient presents with dysuria and ear pain Multiple etiologies for patient's symptoms considered including, but not limited to: COVID versus flu versus other viral upper respiratory infection versus UTI versus other [] Prior Charts reviewed in our EMR Primary Historian: patient Labs reviewed and interpreted by myself: Respiratory panel demonstrates, urine demonstrates UTI Patient's symptoms improved over duration of stay with above-stated therapies. Hemodynamically stable, no signs of sepsis, convincing signs and symptoms as well as urine. Patient given Keflex prepack and prescription sent to his preferred pharmacy. Return precautions discussed and questions answered to his apparent satisfaction Findings and discharge diagnosis discussed with patient/family followed by verbalization of understanding Return precautions discussed with patient/family whom verbalize understanding of diagnosis and plan Discharge Plan Departure Patient Disposition: Home Clinical Impression: Acute UTI, Acute otalgia Instructions: DI for Urinary Tract Infection (UTI) Activity Restrictions/Additional Instructions: *You have been diagnosed with [urinary tract infection and right ear pain.] *What to do: *Please continue to take your regular medications as directed. [x ] New medication prescriptions sent to your pharmacy: [ [facility] in [place]] [ ] New medication written as a paper prescription [ ] No new medications given *Please follow up with your primary care provider in 2-3 days, call for an appointment. Let them know you were seen in the Emergency Department and that we ask that you be seen in follow up. We will electronically transmit a record of today's note if your PCP is in our system *If you do not have a primary care provider please contact the [facility] Resource line at [phone]. They will ask some questions about your medical history and help get you set up with a doctor in the community. *Return to Emergency Department if you should have any new, worsening or concerning symptoms, such as [fever greater than 101 F, shaking chills, worsening pain, persistent vomiting or other bothersome symptoms] Prescriptions: New cefdinir 300 mg capsule 300 mg PO BID Qty: 20 0RF No Action loratadine [Claritin] 10 mg Tablet 10 mg PO DAILY PRN (Reason: Seasonal allergies) hydrocodone-acetaminophen 5-325 mg Tablet 1 tab PO Q4HR PRN (Reason: Pain, Severe (7-10)) Qty: 50 0RF Rx Instructions: 1-2 tabs every 4 to 6 hr as needed tamsulosin [Flomax] 0.4 mg Capsule,Extended Release 24hr 0.4 mg PO DAILY Qty: 30 0RF naproxen 250 mg Tablet 250 mg PO DAILY PRN (Reason: Pain, Mild (1-3)) Qty: 30 0RF aspirin 81 MG tablet,chewable 81 mg PO BID Qty: 0 0RF docusate sodium 100 mg Capsule 100 mg PO BID PRN (Reason: constipation) Qty: 30 0RF cefdinir 300 mg capsule 300 mg PO Q12H Qty: 14 0RF Referrals: Michael Portillo DO [Primary Care Provider] - Stand Alone Forms: Patient Portal/API
[2023-05-19 02:13] LABS: Bilirubin Urine UA NEGATIVE (NEGATIVE); Color Urine UA YELLOW; Glucose Urine UA NEGATIVE (Negative); Ketones Urine UA NEGATIVE (NEGATIVE); Leukocyte Esterase Urine UA 2+ (NEGATIVE); Nitrite Urine UA POSITIVE (Negative); Occult Blood Urine UA 2+ (Negative); Protein Urine UA NEGATIVE (Negative); pH Urine UA 6.5 (4.5-8.0)
[2023-05-19 02:15] LABS: Appearance Urine UA SL CLOUDY
[2023-05-19 02:21] LABS: Bacteria Urine Many (>30); Culture Indicated Urine Specimen Cultured; RBC Urine 0-1/HPF (0-5/HPF); Squamous Epithelial Cell Urine 0-1 /HPF (0-5/HPF); WBC Urine 30-100/HPF (0-5/HPF)
[2023-05-19] MEDS: cephALEXin 250 MG CAP PREPACK 1 BOTTLE MISC (02:35)
[2023-05-19 02:36] VITALS: BP 161/92; PULSE 80; RESP 16; O2SAT 97
[2023-05-19 02:43] VITALS: BP 150/78
[2023-05-19 02:50] LABS: Influenza A - CEPHEID Flu A NEGATIVE (NEGATIVE); Influenza B - CEPHEID Flu B NEGATIVE (NEGATIVE); Respiratory Syncytial Virus Negative (Negative)
[2023-05-19 03:01] LABS: COVID-19 CEPHEID 4-PLEX PCR Negative (Negative)
== END 2023-05-19 02:43 | disposition home or self-care (01) ==
PROVIDERS: Emergency Provider Emergency Medicine; PCP Family Medicine
DX: N39.0 Urinary tract infection, site not specified (principal); H92.01 Otalgia, right ear; Z20.822 Contact with and (suspected) exposure to COVID-19
CPT/HCPCS: 0241U; 81001; 87077; 87086; 87186; 99282; 99283

== ENCOUNTER → 2023-08-18 15:34 | Outpatient (ROUT) | payer MEDICARE, OTHER, SELFPAY ==
[2018-03-01 11:20] VITALS: BMI 32.8
== END ==
PROVIDERS: Visit Provider Student in an Organized Health Care Education/Training Program
DX: Z11.2 Encounter for screening for other bacterial diseases (principal); R89.5 Abnormal microbiological findings in specimens from other organs, systems and tissues
CPT/HCPCS: 87070; 87075; 87077; 87147; 87185; 87186; 87205

== ENCOUNTER 2025-02-19 19:49 | Emergency (ER) | payer MEDICARE, OTHER, SELFPAY ==
[2018-03-01 11:20] VITALS: BMI 32.8
[2025-02-19] VITALS (9 sets, daily range): BP systolic 187–250; BP diastolic 87–110; PULSE 57–68; RESP 16–22; TEMP 36.6; O2SAT 96–100; BMI 29.4
--- NOTE | 2025-02-19 21:30 | ED.GENADULT ---
HPI - General Adult General Chief complaint: Urogenital-Male Stated complaint: urinary symptoms cant pee Time Seen by Provider: 02/19/25 20:22 Source: patient Mode of arrival: Wheelchair History of Present Illness HPI narrative: 64-year-old male with history of urethral strictures, history of suprapubic catheter placement 2 years ago, followed by Urology through [facility], has sensation of suprapubic discomfort, currently on oral antibiotics Augmentin for sacral skin decubitus wound infection. Catheter last changed by home health nursing 02/11/2025. Patient concerned that catheter might be dislodged or otherwise not functioning. tried to flush it, still no improvement in suprapubic discomfort. No fevers or chills. No flank pain. No upper middle periumbilical upper right upper left abdominal pain. Denies nausea or vomiting. No diarrhea loose stools. Related Data Home Medications ?Medication ?Instructions ?Recorded ?Confirmed loratadine 10 mg tablet (Claritin) 10 mg PO DAILY PRN Seasonal 01/30/18 03/01/18 allergies Previous Rx's ?Medication ?Instructions ?Recorded aspirin 81 mg chewable tablet 81 mg PO BID #0 tabs 03/02/18 docusate sodium 100 mg capsule 100 mg PO BID PRN constipation #30 03/02/18 caps hydrocodone 5 mg-acetaminophen 325 1 tab PO Q4HR PRN Pain, Severe 03/02/18 mg tablet (7-10) #50 tabs naproxen 250 mg tablet 250 mg PO DAILY PRN Pain, Mild 03/02/18 (1-3) #30 tabs tamsulosin 0.4 mg capsule (Flomax) 0.4 mg PO DAILY #30 caps 03/02/18 cefdinir 300 mg capsule 300 mg PO Q12H #14 caps 11/19/22 cefdinir 300 mg capsule 300 mg PO BID #20 caps 05/19/23 Allergies Allergy/AdvReac Type Severity Reaction Status Date / Time oxycodone (From PERCOCET) AdvReac Unknown NAUSEA/VOMI Verified 02/19/25 21:51 TING Patient History Medical History Cardiac enlargement Cervical radiculopathy Dermatitis GERD (gastroesophageal reflux disease) HTN (hypertension) Hyperlipidemia Male circumcision Osteoarthritis Rupture of left patellar tendon Sleep apnea with use of continuous positive airway pressure (CPAP) Syncopal episodes Surgical History History of arthroplasty of left knee History of vasectomy Hx of arthroscopy of right knee Hx of ventral hernia repair Social History (System 08/22/23 @ 08:27 by Favian Baldwin) household members: spouse Smoking Status: Never smoker alcohol intake: never Smoking Status: Never smoker Exam Narrative Exam Narrative: GENERAL: Well-developed patient, in mild distress. HEAD: Atraumatic. Normocephalic. EYES: Pupils equal round and reactive. Extraocular motions intact. No scleral icterus. No injection or drainage. ENT: Nose without bleeding, purulent drainage. Throat without erythema, tonsillar hypertrophy or exudate. Airway patent. NECK: Trachea midline. Non tender CARDIOVASCULAR: Regular rate and rhythm without murmurs, gallops, or rubs. RESPIRATORY: Clear to auscultation. Breath sounds equal bilaterally. No wheezes, rales, or rhonchi. GASTROINTESTINAL: Abdomen soft, non-tender, nondistended. Suprapubic site clean, with catheter in place, no leaking around site, no significant tenderness or discharge. EXTREMITIES: No edema or joint tenderness. BACK: Nontender without deformity or crepitance. No flank tenderness. NEURO: AOx3. Motor functions grossly nonfocal. SKIN: No rash or erythema of visible areas Initial Vital Signs Initial Vital Signs: Vital Signs Temperature 97.8 F 02/19/25 20:04 Pulse Rate 67 02/19/25 20:04 Respiratory Rate 18 02/19/25 20:04 Blood Pressure 196/103 H 02/19/25 20:04 Pulse Oximetry 99 02/19/25 20:04 Oxygen Delivery Method Room Air 02/19/25 20:04 Course Orders Ordered: ED Orders 02/19/25 21:34 CT abdomen pelvis wo con Stat 02/19/25 21:40 CBC Auto Diff [Complete Blood Count AUTO DIFF] Stat CMP [Comprehensive Metabolic Panel] Stat Prothrombin Time INR Stat 02/20/25 00:00 Urinalysis and Microscopic Stat 02/20/25 01:12 EKG-12 Lead Stat 02/20/25 01:36 Blood Culture Stat Lactate (Lactic Acid) Stat Procalcitonin Stat Discontinued Medications Diphenhydramine HCl (Diphenhydramine 50 Mg/Ml Vial) 25 mg IV NOW ONE Stop: 02/20/25 01:01 Last Admin: 02/20/25 01:04 Dose: 25 mg Documented By: Hydromorphone HCl (Hydromorphone Hcl 0.5 Mg/0.5 Ml Syringe) 0.5 mg IV NOW ONE Stop: 02/19/25 22:44 Last Admin: 02/19/25 22:52 Dose: 0.5 mg Documented By: BONNIE Sodium Chloride (Normal Saline 0.9%) 1,000 mls @ 2,000 mls/hr IV BOLUS STA Stop: 02/20/25 01:27 Last Admin: 02/20/25 01:00 Dose: 2,000 mls/hr Documented By: Sodium Chloride (Normal Saline 0.9%) 1,000 mls @ 1,000 mls/hr IV BOLUS ONE Stop: 02/20/25 02:05 Last Admin: 02/20/25 01:08 Dose: 1,000 mls/hr Documented By: Metoclopramide HCl (Metoclopramide 10 Mg/2 Ml Inj) 10 mg IV NOW ONE Stop: 02/20/25 01:01 Last Admin: 02/20/25 01:05 Dose: 10 mg Documented By: Ondansetron HCl (Ondansetron 4 Mg/2 Ml Inj) 4 mg IV NOW ONE Stop: 02/19/25 22:44 Last Admin: 02/19/25 22:52 Dose: 4 mg Documented By: BONNIE Ondansetron HCl (Ondansetron 4 Mg/2 Ml Inj) 4 mg IV NOW ONE Stop: 02/20/25 00:47 Last Admin: 02/20/25 01:04 Dose: 4 mg Documented By: Vital Signs Vital signs: Vital Signs - 8 hr 02/19/25 20:04 02/19/25 21:32 02/19/25 21:33 Temperature 97.8 F Pulse Rate 67 57 L 58 L Respiratory Rate 18 Blood Pressure 196/103 H Pulse Oximetry 99 99 97 Oxygen Delivery Method Room Air 02/19/25 21:33 02/19/25 22:11 02/19/25 22:12 Temperature Pulse Rate 60 Respiratory Rate Blood Pressure 243/107 H 250/110 H Pulse Oximetry 98 Oxygen Delivery Method 02/19/25 22:12 02/19/25 22:28 02/19/25 22:28 Temperature Pulse Rate 60 59 L Respiratory Rate Blood Pressure 216/96 H Pulse Oximetry 98 99 Oxygen Delivery Method 02/19/25 22:30 02/19/25 22:30 02/19/25 23:00 Temperature Pulse Rate 59 L 60 Respiratory Rate 22 Blood Pressure 204/93 H Pulse Oximetry 100 98 Oxygen Delivery Method 02/19/25 23:00 02/19/25 23:30 02/19/25 23:30 Temperature Pulse Rate 68 Respiratory Rate 16 Blood Pressure 194/88 H 187/87 H Pulse Oximetry 96 Oxygen Delivery Method 02/20/25 00:00 02/20/25 00:00 02/20/25 00:30 Temperature Pulse Rate 91 H 78 Respiratory Rate 39 H 20 Blood Pressure 191/94 H Pulse Oximetry 97 99 Oxygen Delivery Method 02/20/25 00:30 02/20/25 00:52 02/20/25 00:52 Temperature Pulse Rate 83 Respiratory Rate 23 Blood Pressure 138/65 68/47 L Pulse Oximetry 81 L Oxygen Delivery Method 02/20/25 00:57 02/20/25 00:57 02/20/25 01:00 Temperature Pulse Rate 78 86 Respiratory Rate 27 H 18 Blood Pressure 82/53 L Pulse Oximetry 96 96 Oxygen Delivery Method 02/20/25 01:00 02/20/25 01:03 02/20/25 01:03 Temperature Pulse Rate 80 Respiratory Rate 27 H Blood Pressure 72/52 L 91/50 L Pulse Oximetry 95 Oxygen Delivery Method 02/20/25 01:05 02/20/25 01:05 02/20/25 01:10 Temperature Pulse Rate 83 72 Respiratory Rate 17 Blood Pressure 95/53 L Pulse Oximetry 96 96 Oxygen Delivery Method 02/20/25 01:10 02/20/25 01:15 02/20/25 01:15 Temperature Pulse Rate 63 Respiratory Rate 12 Blood Pressure 88/55 L 88/52 L Pulse Oximetry 94 Oxygen Delivery Method 02/20/25 01:20 02/20/25 01:20 02/20/25 01:25 Temperature Pulse Rate 62 Respiratory Rate 13 Blood Pressure 99/55 L 98/53 L Pulse Oximetry 95 Oxygen Delivery Method 02/20/25 01:25 02/20/25 01:30 02/20/25 01:30 Temperature Pulse Rate 59 L 59 L Respiratory Rate 13 12 Blood Pressure 103/52 L Pulse Oximetry 94 95 Oxygen Delivery Method Room Air Medical Decision Making Lab Data Lab results reviewed: Yes I reviewed the patient's lab results. Lab results narrative: White blood cell count 8900, hemoglobin 15.3, platelets adequate. Glucose 103. Normal renal function. Normal serum CO2 and electrolytes. Liver functions normal. 02/19/25 21:40 02/19/25 21:40 Labs: Lab Results 02/19/25 02/20/25 02/20/25 Range/Units 21:40 00:00 01:36 WBC 8.9 (4.5-11.0) X10^3/uL RBC 5.08 (4.5-5.9) X10^6/uL Hgb 15.3 (13.5-17.5) g/dL Hct 45.2 (41-53) % MCV 89.1 (80-100) fL MCH 30.1 (26-34) PG MCHC 33.7 (30-36) % RDW 15.6 H (11.6-14.8) % Plt Count 237 (150-400) X10^3/uL Neut % (Auto) 58.2 (50-75) % Lymph % (Auto) 31.2 (25-40) % Casey % (Auto) 7.6 (3-14) % Eos % (Auto) 2.4 (2-4) % Baso % (Auto) 0.6 (0-2) % Neut # (Auto) 5200 (6474-4892) /uL Lymph # (Auto) 2800 (1304-7610) /uL Casey # (Auto) 700 (0-900) /uL Eos # (Auto) 200 (0-450) /uL Baso # (Auto) 100 (0-100) /uL PT 12.2 (9.4-12.5) SECONDS INR 1.1 (0.9-1.3) Sodium 141 (137-145) mmol/L Potassium 4.0 (3.4-5.1) mmol/L Chloride 105 (98-107) mmol/L Carbon Dioxide 29 (22-32) mmol/L BUN 10 (9-20) mg/dL Creatinine 0.66 (0.66-1.25) mg/dL Estimated GFR > 60 (>60) mL/min BUN/Creatinine Ratio 15.2 (6-22) Glucose 103 H (70-99) mg/dL Lactate 2.0 (0.7-2.1) mmol/L Calcium 9.2 (8.4-10.2) mg/dL Total Bilirubin 0.8 (0.2-1.3) mg/dL AST 36 (17-59) IU/L ALT 32 (<50) IU/L Alkaline Phosphatase 110 (38-126) U/L Total Protein 8.8 H (6.3-8.2) g/dL Albumin 4.6 (3.5-5.0) g/dL Globulin 4.2 H (1.7-4.1) g/dL Albumin/Globulin Ratio 1.1 (1.0-2.8) Urine Color Yellow Urine Appearance Clear Urine pH 6.0 (4.5-8.0) Ur Specific Simon 1.010 (1.000-1.035) Urine Protein Negative (Negative) Urine Glucose (UA) Negative (Negative) g/dL Urine Ketones Negative (NEGATIVE) Urine Occult Blood Negative (Negative) Urine Nitrate Negative (Negative) Urine Bilirubin Negative (NEGATIVE) Urine Urobilinogen 0.2 (0.2) E.U./dL Ur Leukocyte Esterase Negative (NEGATIVE) Urine RBC None seen (0-5/HPF) Urine WBC None seen (0-5/HPF) Ur Squamous Epith Cells None seen (0-5/HPF) Urine Bacteria None seen (None) Ur Culture Indicated? Cult not indicated Vol Urine Centrifuged 10ml (spun) Imaging Data CT scan - abdomen/pelvis: Radiologist's Impression: [place] [address] CT Scan Report Signed Patient: Jb Flores MR#: [id number] : 1960 Acct:[id number] Age/Sex: 64 / M Date of Service: 02/19/25 Loc: ED Accession Number: [id number] Procedure: CT abdomen pelvis wo con Ordering Provider: Camron Serrano MD PROCEDURE: CT ABDOMEN PELVIS WO CON INDICATIONS: hx SP catheter, not draining, wont flush TECHNIQUE: CT of the abdomen and pelvis was obtained without intravenous contrast. Coronal and sagittal reformats were performed. For radiation dose reduction, the following was used: automated exposure control, adjustment of mA and/or kV according to patient size. COMPARISON: None. FINDINGS: Image quality: Diagnostic. Lower Chest: No significant findings. ABDOMEN: Liver: No contour-deforming mass. Gallbladder: No radiopaque gallstones or wall thickening. Biliary ducts: No biliary dilation. Pancreas: No ductal dilation. Spleen: Size is within normal limits. Adrenal Glands: No adrenal nodules. Kidneys and Ureters: No hydronephrosis. No contour-deforming mass. Stomach and Bowel: Normal colonic caliber, without significant wall thickening. Normal caliber appendix. Peritoneum: No abnormal intraperitoneal fluid. No free air. Ventral Wall: No significant hernia. Abdominal Nodes: No retroperitoneal or mesenteric adenopathy by size criteria. Vessels: Aorta and inferior vena cava are normal in size. PELVIS: Pelvic Organs: Unremarkable. Bladder: Suprapubic catheter is visualized. Single foci of gas within the bladder as expected from presence of catheter.. Pelvic Nodes: No enlarged lymph nodes. Miscellaneous: No inguinal hernias are seen. Bones: No aggressive osseous abnormality. 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 No acute osseous abnormality. IMPRESSION: No acute abdominopelvic process. Suprapubic catheter appears appropriately positioned on noncontrast exam. Additional findings as above. Approved by: Dee Puri M.D.,Ph.D. on 02/19/2025 at 23:25 ECG Data Attestation: I personally reviewed and interpreted this ECG as follows: Interpretation: 0127, normal sinus rhythm with rate of 65, no obvious ST segment elevation or depression changes. [place] 150, QRS 116, QTC 474. [facility] Narrative Medical decision making narrative: 64-year-old male with suprapubic catheter, no flow from the catheter, abdominopelvic pain. Afebrile, sirs screen negative. Catheter flushing did not seem to help with withdrawal of any fluid. Consider imaging. Labs pending. Lab data: White blood cell count 8900, hemoglobin 15.3, platelets adequate. Glucose 103. Normal renal function. Normal serum CO2 and electrolytes. Liver functions normal. CT abdomen and pelvis. Suprapubic catheter seems to be position properly within the bladder. There was no mentioned of the bladder being distended, nor any hydronephrosis or hydroureter. No acute abdominopelvic findings. See radiology report. Patient attempted flushing of catheter, with a little bit more force, was then able to withdraw 300 cc of fluid. Scant blood-tinged. Urinalysis pending. 0100, patient having low blood pressure, possible vasovagal reaction to the more vigorous flushing dislodgement procedure, will obtain EKG, IV fluid bolus. Urinalysis results pending. EKG without obvious ischemic changes, sinus rhythm. Urinalysis not convincing for infection. Blood pressure improved, seems likely this was a vasovagal reaction to the vigorous flushing, that seemed to dislodge something, now there is flow of urine. Not obviously infected. 0200, systolic blood pressure 130, heart rate 70s. He feels better. He would like to go home. Home with . Return precautions discussed. Follow up with Urology as planned. Discharge Plan Departure Patient Disposition: Home Clinical Impression: Blocked urinary catheter, Vasovagal episode Activity Restrictions/Additional Instructions: History of existing suprapubic catheter of at least 2 years duration, most recently change 02/11/2025, with sensation that it is functioning, no longer draining, home aspiration flushing did not seem to help. Initial attempts to flush here were also unsuccessful. No urinalysis initially obtained. CT abdomen and pelvis imaging was performed, the bladder was not particularly distended or inflamed, the catheter tip was within the bladder as expected. Subsequent further flushed attempt more vigorous was successful, dislodging something, with flow of urine a proximally 300 cc. Urinalysis was then obtained and sent to the laboratory, not convincing for infection at this time. After the flushing procedure you seemed to have a low blood pressure event, possible vasovagal episode, that might have been in response to the vigorous catheter flushing procedure. You seemed recovered, both in blood pressure and pulse rate in symptoms. We did discuss repeat CT imaging to look for any injury patterns, declined. Keep existing urinary catheter suprapubic position in place for now. Follow up with your urologist as planned. Follow up with your home health nurse as planned. Return earlier to this/nearest emergency department for any change worsening symptoms or any concerns prior. Prescriptions: No Action cefdinir 300 mg capsule 300 mg PO BID Qty: 20 0RF loratadine [Claritin] 10 mg Tablet 10 mg PO DAILY PRN (Reason: Seasonal allergies) hydrocodone-acetaminophen 5-325 mg Tablet 1 tab PO Q4HR PRN (Reason: Pain, Severe (7-10)) Qty: 50 0RF Rx Instructions: 1-2 tabs every 4 to 6 hr as needed tamsulosin [Flomax] 0.4 mg Capsule,Extended Release 24hr 0.4 mg PO DAILY Qty: 30 0RF naproxen 250 mg Tablet 250 mg PO DAILY PRN (Reason: Pain, Mild (1-3)) Qty: 30 0RF aspirin 81 MG tablet,chewable 81 mg PO BID Qty: 0 0RF docusate sodium 100 mg Capsule 100 mg PO BID PRN (Reason: constipation) Qty: 30 0RF cefdinir 300 mg capsule 300 mg PO Q12H Qty: 14 0RF Referrals: Michael Protillo DO [Primary Care Provider, Family Practice] Stand Alone Forms: Patient Portal/API
--- NOTE | 2025-02-19 21:34 | DI.CT.S_ITS ---
PROCEDURE: CT ABDOMEN PELVIS WO CON INDICATIONS: hx SP catheter, not draining, wont flush TECHNIQUE: CT of the abdomen and pelvis was obtained without intravenous contrast. Coronal and sagittal reformats were performed. For radiation dose reduction, the following was used: automated exposure control, adjustment of mA and/or kV according to patient size. COMPARISON: None. FINDINGS: Image quality: Diagnostic. Lower Chest: No significant findings. ABDOMEN: Liver: No contour-deforming mass. Gallbladder: No radiopaque gallstones or wall thickening. Biliary ducts: No biliary dilation. Pancreas: No ductal dilation. Spleen: Size is within normal limits. Adrenal Glands: No adrenal nodules. Kidneys and Ureters: No hydronephrosis. No contour-deforming mass. Stomach and Bowel: Normal colonic caliber, without significant wall thickening. Normal caliber appendix. Peritoneum: No abnormal intraperitoneal fluid. No free air. Ventral Wall: No significant hernia. Abdominal Nodes: No retroperitoneal or mesenteric adenopathy by size criteria. Vessels: Aorta and inferior vena cava are normal in size. PELVIS: Pelvic Organs: Unremarkable. Bladder: Suprapubic catheter is visualized. Single foci of gas within the bladder as expected from presence of catheter.. Pelvic Nodes: No enlarged lymph nodes. Miscellaneous: No inguinal hernias are seen. Bones: No aggressive osseous abnormality. 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 No acute osseous abnormality. IMPRESSION: No acute abdominopelvic process. Suprapubic catheter appears appropriately positioned on noncontrast exam. Additional findings as above. Approved by: Dee Puri M.D.,Ph.D. on 02/19/2025 at 23:25
[2025-02-19 21:50] LABS: Add Manual Diff / Slide Review NO; Hematocrit 45.2 % (41-53); Hemoglobin 15.3 g/dL (13.5-17.5); Lymphocytes Absolute Auto 2800 /uL (1100-4500); Mean Corpuscular HGB Conc 33.7 % (30-36); Mean Corpuscular Hemoglobin 30.1 PG (26-34); Mean Corpuscular Volume 89.1 fL (80-100); Platelet Count 237 X10^3/uL (150-400)
[2025-02-19 21:57] LABS: INR 1.1 (0.9-1.3); Prothrombin Time 12.2 SECONDS (9.4-12.5)
[2025-02-19 22:01] LABS: Alanine Aminotransferase 32 IU/L (<50); Albumin 4.6 g/dL (3.5-5.0); Albumin Globulin Ratio 1.1 (1.0-2.8); Alkaline Phosphatase 110 U/L (38-126); Blood Urea Nitrogen 10 mg/dL (9-20); Calcium 9.2 mg/dL (8.4-10.2); Carbon Dioxide 29 mmol/L (22-32); Chloride 105 mmol/L (98-107); Estimated Glomerular Filt Rate > 60 mL/min (>60); Globulin 4.2 g/dL (1.7-4.1); Glucose 103 mg/dL (70-99); HEMOLYSIS 21 (0-50); Potassium 4.0 mmol/L (3.4-5.1); Sodium 141 mmol/L (137-145); Total Protein 8.8 g/dL (6.3-8.2)
[2025-02-19] MEDS: ONDANSETRON 4 MG/2 ML INJ IV (22:52)
[2025-02-20] VITALS (18 sets, daily range): BP systolic 68–191; BP diastolic 47–94; PULSE 59–91; RESP 12–39; O2SAT 81–99
--- NOTE | 2025-02-20 00:30 | PC.NURSE ---
Pt is c/o low abd pressure and L side flank pain. Per pt's report, his catheter has not drained urine since 02/23/25 AM. Pt's attempted to flush catheter at home w/50 cc and was unable to get return. Pt's suprapubic catheter flushed w/50 cc of saline per provider's verbal order. 60 cc of clear yellow urine returned w/flush. Catheter tube reconnected and catheter is now draining urine. Pt reports some relief at this time.
[2025-02-20] MEDS: SODIUM CHLORIDE 0.9% 1,000 ML 2000 ML IV (01:00)
[2025-02-20] MEDS: ONDANSETRON 4 MG/2 ML INJ IV (01:04)
[2025-02-20] MEDS: diphenhydrAMINE 50 MG/ML VIAL 25 MG IV (01:04)
[2025-02-20] MEDS: METOCLOPRAMIDE 10 MG/2 ML INJ IV (01:05)
[2025-02-20] MEDS: SODIUM CHLORIDE 0.9% 1,000 ML 1000 ML IV (01:08)
--- NOTE | 2025-02-20 01:12 | EKG_ITS ---
[facility] [address] [place] [id number] Test Date: 2025-02-20 Pat Name: Jb Flores Department: [facility] Room: Gender: Male [employer] Supervisor: FRANNIE : 1960 Requested By: Order Number: [id number] Reading MD: Salbador Jamison MD Measurements Intervals [place] Rate: 65 P: 62 CO: 150 QRS: -27 QRSD: 116 T: -13 QT: 456 QTc: 474 Interpretive Statements Normal sinus rhythm Left ventricular hypertrophy with QRS widening ( R in aVL , Savage product ) Cannot rule out Septal infarct , age undetermined Electronically Signed On 02-20-2025 7:31:18 PDT by Salbador Jamison MD
[2025-02-20 01:15] LABS: Appearance Urine UA CLEAR; Bilirubin Urine UA NEGATIVE (NEGATIVE); Color Urine UA YELLOW; Glucose Urine UA NEGATIVE (Negative); Ketones Urine UA NEGATIVE (NEGATIVE); Nitrite Urine UA NEGATIVE (Negative); Occult Blood Urine UA NEGATIVE (Negative); Protein Urine UA NEGATIVE (Negative); Specific Gravity Urine UA 1.010 (1.000-1.035); Urobilinogen Urine UA 0.2 E.U./dL (0.2); pH Urine UA 6.0 (4.5-8.0)
[2025-02-20 01:28] LABS: Leukocyte Esterase Urine UA NEGATIVE (NEGATIVE)
[2025-02-20 01:29] LABS: Culture Indicated Urine Cult Not Indicated
[2025-02-20 02:12] LABS: Lactate (Lactic Acid) 2.0 mmol/L (0.7-2.1)
[2025-02-20 02:30] LABS: Procalcitonin 0.052 ng/mL (<0.5)
== END 2025-02-20 02:35 | disposition home or self-care (01) ==
PROVIDERS: Emergency Provider Emergency Medicine; PCP Family Medicine
DX: T83.098A Other mechanical complication of other urinary catheter, initial encounter (principal); R55 Syncope and collapse
CPT/HCPCS: 74176; 80053; 81001; 83605; 84145; 85025; 85610; 87040; 93005; 93010; 96361; 96374; 96375; 96376; 99283; 99284; J1171; J1200; J2405; J2765